=== PATIENT | female | born 1990 | race Two or more races ===

== ENCOUNTER 2021-03-12 15:17 | Emergency (ER) | payer BC, OTHER ==
[~2021-03-12] VITALS: Ht 162.6 cm; Wt 63.5 kg
[2021-03-12] MEDS ORDERED: ACET-1080 PO (17:12)
[2021-03-12 17:22] VITALS: BP 144/53
== END 2021-03-12 17:35 | disposition home or self-care (01) ==
LOC: ER 15:26
DX: S93.601A Unspecified sprain of right foot, initial encounter (principal); F17.210 Nicotine dependence, cigarettes, uncomplicated; Z87.442 Personal history of urinary calculi; X58.XXXA Exposure to other specified factors, initial encounter; Y93.01 Activity, walking, marching and hiking; Y92.89 Other specified places as the place of occurrence of the external cause; Y99.8 Other external cause status
CPT/HCPCS: 73630

== ENCOUNTER 2024-05-21 00:08 | Inpatient (IN) | payer BC ==
[~2024-05-21] VITALS: Ht 162.6 cm; Wt 57.9 kg
[~2024-05-21 00:08] MED LIST: ACET-1080 PO
--- NOTE | 2024-05-21 01:14 | ED.PDOC ---
General Chief Complaint: Flank Pain Comments pt has a history of kidney stones. the last episode was 2 years ago. pain started today, with left flank pain, radiating to left groin. also started her menses today, so does not know if she has hematuria. no dysuria. no trauma Time Seen by MD: 01:00 Primary Care Provider: UNKNOWN Reviewed notes: Nurses Notes Allergies: Coded Allergies: No Known Drug Allergy (Verified Allergy, Unknown, 03/12/21) Home Meds Active Scripts Acetaminophen (Tylenol 8 Hour Arthritis) 650 Mg Tab, 650 MG PO TID, #20 TAB Prov:ROGE MULLER 03/12/21 Information Source: Patient, [facility] Medical Record Mode of Arrival: Ambulatory Severity: Mild Inability to void: None Timing: Hours Duration: Since onset Onset: Spontaneous Symptoms: None History of: Kidney stone Modifying factors: None associated signs and symptoms: Flank Pain Past Medical History PAST MEDICAL HISTORY: Anxiety, Depression, Kidney Stones Surgical History: Denies all surgeries 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 History: Endometriosis Family History Family History: Reviewed,noncontributory to illness Social History Smoker: Cigarettes Alcohol: Denies ETOH Use Drugs: Denies Drug Use Lives In: Home Constitutional: denies: chills, diaphoresis, fatigue, fever, malaise, sweats, weakness, others EENTM: denies: blurred vision, double vision, ear bleeding, ear discharge, ear drainage, ear pain, ear ringing, eye pain, eye redness, hearing loss, mouth pain, mouth swelling, nasal discharge, nose bleeding, nose congestion, nose pain, photophobia, tearing, throat pain, throat swelling, voice changes, others Respiratory: denies: cough, hemoptysis, orthopnea, SOB at rest, shortness of breath, SOB with excertion, stridor, wheezing, others Cardiovascular: denies: chest pain, dizzy spells, diaphoresis, Dyspnea on exertion, edema, irregular heart beat, left arm pain, lightheadedness, palpitations, PND, syncope, others Gastrointestinal: denies: abdomen distended, abdominal pain, blood streaked bowels, constipated, diarrhea, dysphagia, difficulty swallowing, hematemesis, melena, nausea, poor appetite, poor fluid intake, rectal bleeding, rectal pain, vomiting, others Genitourinary: reports: flank pain; denies: abnormal vagina bleeding, burning, dyspareunia, dysuria, frequency, hematuria, incontinence, pain, , vagina discharge, urgency, others Neurological: denies: dizziness, fainting, headache, left sided numbness, left sided weakness, numbness, paresthesia, pre-existing deficit, right sided numbness, right sided weakness, seizure, speech problems, tingling, tremors, we akness, others Musculoskeletal: denies: back pain, gout, joint pain, joint swelling, muscle pain, muscle stiffness, neck pain, others Integumetry: denies: bruises, change in color, change in hair/nails, dryness, laceration, lesions, lumps, rash, wounds, others Allergic/Immunocompromised: denies: Difficulty Healing, Frequent Infections, Hives, Itching, others Hematologic/Lymphatic: denies: anemia, blood clots, easy bleeding, easy bruising, swollen glands, others Endocrine: denies: excessive hunger, excessive sweating, excessive thirst, excessive urination, flushing, intolerance to cold, intolerance to heat, unexplained weight gain, unexplained weight loss, others Psychiatric: denies: anxiety, bipolar disorder, depression, hopeless, panic disorder, schizophrenia, sleepless, suicidal, others Physical Exam General Appearance: No Apparent Distress, Normal HEENT: Normal ENT Inspection, Pharynx Normal, TMs Normal Neck: Full Range of Motion, Non-Tender, Normal, Normal Inspection Respiratory: Chest Non-Tender, Lungs Clear, No Accessory Muscle Use, No Respiratory Distress, Normal Breath Sounds Cardiovascular: No Edema, No JVD, No Murmur, No Gallop, Normal Peripheral Pulses, Regular Rate/Rhythm Breast Exam: Deferred Gastrointestinal: No Organomegaly, Non Tender, No Pulsatile Mass, Normal Bowel Sounds, Soft Genitalia: Deferred Pelvic: Deferred Rectal: Deferred Extremities: No calf tenderness, Normal capillary refill, Normal inspection, Normal range of motion, Non-tender, No pedal edema Musculoskeletal : Apperance: Normal Neurologic: Alert, 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 Was a procedure done?: No Differential Diagnosis Kidney stone (Female): , Bowel obstruction, DJD, Musculoskeletal pain, Pyelonephritis, Strain, Urinary obstruction, Urolithiasis Kidney stone (Male): Pyelonephritis, Strain, Urolithiasis, Renal infarction, Urinary tract infection Penile/Scrotal: Urolithiasis Urinary Problem (Male): N/A Urinary Problem (Female): Ectopic , Impaction, Intrauterine , Pyelonephritis, Urinary retention, Urolithiasis, UTI X-Ray, Labs, Meds, VS Vital Signs Date Time Temp Pulse Resp B/P (MAP) Pulse Ox O2 Delivery O2 Flow Rate FiO2 05/21/24 00:52 98.7 91 18 124/58 (80) 99 98.7 Lab Test 05/21/24 01:39 05/21/24 01:25 Range/Units Urine Color Pending Urine Clarity Pending Urine pH Pending Urine Specific [place] Pending Urine Protein Pending Urine Ketones Pending Urine Blood Pending Urine Nitrite Pending Urine Bilirubin Pending Urine Urobilinogen Pending Urine Leukocyte Esterase Pending Urine RBC Pending Urine Microscopic WBC Pending Urine Squamous Epithelial Cells Pending Urine Bacteria Pending Urine Glucose Pending White Blood Count 5.0 4.4-10.8 10^3/uL Red Blood Count 4.09 4.0-5.20 10^6/uL Hemoglobin 13.7 12.2-16.2 g/dL Hematocrit 39.9 36.0-46.0 % Mean Corpuscular Volume 97.6 80.0-100.0 fL Mean Corpuscular Hemoglobin 33.6 H 28.0-32.0 pg Mean Corpuscular Hemoglobin Concent 34.4 32.0-36.0 g/dL Red Cell Distribution Width 13.5 11.8-14.3 % Platelet Count 286 140-450 10^3/uL Mean Platelet Volume 8.4 6.9-10.8 fL Neutrophils (%) (Auto) 36.3 L 37.0-80.0 % Lymphocytes (%) (Auto) 55.0 H 10.0-50.0 % Monocytes (%) (Auto) 6.9 0.0-12.0 % Eosinophils (%) (Auto) 1.4 0.0-7.0 % Basophils (%) (Auto) 0.4 0.0-2.0 % Neutrophils # (Auto) 1.8 1.6-8.6 10 ^3/uL Lymphocytes # (Auto) 2.7 0.4-5.4 10 ^3/uL Monocytes # (Auto) 0.3 0-1.3 10 ^3/uL Eosinophils # (Auto) 0.1 0-0.8 10 ^3/uL Basophils # (Auto) 0 0-0.2 10 ^3/uL Nucleated Red Blood Cells 0.1 % Sodium Level 138 136-145 mmol/L Potassium Level 4.0 3.5-5.1 mmol/L Chloride Level 111 H 98-107 mmol/L Carbon Dioxide Level 23 20-31 mmol/L Anion Gap 4 L 5-15 Blood Urea Nitrogen 9 9-23 mg/dL Creatinine 0.89 0.550-1.02 mg/dL Glomerular Filtration Rate Calc 87 >90 mL/min BUN/Creatinine Ratio 10.1 10.0-20.0 Serum Glucose 83 74-106 mg/dL Calcium Level 9.2 8.7-10.4 mg/dL Beta HCG, Quantitative 0.7 L 1.5-4.2 mIU/mL Time of 1ST Reevaluation: 02:14 Reevaluation 1ST: Unchanged Patient Education/Counseling: Diagnosis, Treatment, Prognosis, Need For Follow Up Family Education/Counseling: No Family Present Additional Information pt continues to have pain. she does have stones in the midpole of the kidney, however they are causing signs of obstruction at the UVJ and symptoms. pt has had stones in the past that required lithotripsy. 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 i assessed the patient's condition, ordered the proper tests and treatments, reassessed for response and reviewed the results. i communicated with medical personnel and formulated a plan of care. total critical care time does not include any procedures Stability Stability form required: AAMIR Stahl MD May 21, 2024 01:14
[2024-05-21] MEDS ORDERED: KETOROLAC TROMETH 60MG/2ML VIAL IM ONE (01:15)
[2024-05-21 01:49] LABS: Basophils # (auto) 0 10 ^3/uL (0-0.2); Basophils % (auto) 0.4 % (0.0-2.0); Eosinophils # (auto) 0.1 10 ^3/uL (0-0.8); Eosinophils % (auto) 1.4 % (0.0-7.0); Hematocrit 39.9 % (36.0-46.0); Hemoglobin 13.7 g/dL (12.2-16.2); Lymphocytes # (auto) 2.7 10 ^3/uL (0.4-5.4); Mean Corpuscular Hemoglobin 33.6 pg (28.0-32.0); Mean Corpuscular Hgb Conc. 34.4 g/dL (32.0-36.0); Mean Corpuscular Volume 97.6 fL (80.0-100.0); Monocytes # (auto) 0.3 10 ^3/uL (0-1.3); Monocytes % (auto) 6.9 % (0.0-12.0); Neutrophils # (auto) 1.8 10 ^3/uL (1.6-8.6); Neutrophils % (auto) 36.3 % (37.0-80.0); Nucleated Red Blood Cells % 0.1 %; Platelet Count (auto) 286 10^3/uL (140-450); Red Blood Cells 4.09 10^6/uL (4.0-5.20); Red Cell Distribution Width 13.5 % (11.8-14.3)
--- NOTE | 2024-05-21 01:56 | [facility] ---
Exam: CT CT AB PEL WO CON-NO ORAL OR IV History: left flank pain Comparison Study: None Technique: Multidetector spiral CT of the abdomen was performed from lung bases to pubic symphysis. I maging was performed without IV contrast. Axial, coronal and sagittal multiplanar reformats were obta ined from the axial data set by the technologist. Radiation Dose : 1. Abdomen/Pelvis: CTDIvol 5.2 mGy, DLP 294.86 mGy*cm. Findings: Evaluation of solid organs is limited due to lack of intravenous contrast use. Lung Bases: No acute or significant lung base finding. Normal heart size. No pleural or pericardial effusion. Liver: The liver is normal in size. No focal lesions. Gallbladder and Biliary Tree: Unremarkable Spleen: Unremarkable Pancreas: The pancreas is grossly normal in appearance. Adrenal Glands: Unremarkable Kidneys: Multiple calculi within the left kidney measure up to approximately 1.0 cm within the midpo le, which is partially obstructing the ureteropelvic junction, resulting in mild hydronephrosis. Left superior pole renal cortical cyst measures 0.9 cm. The right kidney is normal in appearance. Bladder: Grossly unremarkable for degree of distention. Bowel: The stomach is grossly normal in appearance. Small bowel and colon are normal in caliber and d istribution. Retained stool noted throughout the colon. The appendix is not visualized; however, no s econdary findings of acute appendicitis identified. Ascites: Absent Lymphadenopathy: No mesenteric, retroperitoneal or periportal lymphadenopathy. Abdominal Wall and Mesentery: Unremarkable. Vasculature: The visualized abdominal aorta is normal in size and caliber. Evaluation of abdominal a nd pelvic vessels is limited due to lack of intravenous contrast. Pelvic Organs: 2.1 cm right adnexal cystic near water attenuation structure, likely ovarian cyst. Oth erwise unremarkable. Musculoskeletal: No aggressive focal bony lesions, acute fractures or dislocation. IMPRESSION: 1. Mild left hydronephrosis secondary to a partially obstructing UPJ calculus. 2. Retained colonic stool. 3. Probable right ovarian cyst. Radiation optimization: All CT scans at this facility use at least one of these dose optimization loyd hniques: automated exposure control mA and/or kV adjustment per patient size (includes targeted exam s where dose is matched to clinical indication) or iterative reconstruction.
[2024-05-21 01:57] LABS: Sodium 138 mmol/L (136-145)
[2024-05-21 01:58] LABS: Anion Gap 4 (5-15); Carbon Dioxide 23 mmol/L (20-31)
[2024-05-21 01:59] LABS: Calcium 9.2 mg/dL (8.7-10.4)
[2024-05-21 02:03] LABS: BUN/Creatinine Ratio 10.1 (10.0-20.0); Glucose 83 mg/dL (74-106)
[2024-05-21 02:04] LABS: Blood Urea Nitrogen 9 mg/dL (9-23); Chloride 111 mmol/L (98-107)
[2024-05-21] MEDS: SODIUM CHLORIDE 0.9% 1,000 ML IV ONE (02:58)
[2024-05-21] MEDS: fentaNYL CITRATE 100 MCG/2 ML VL IV ONE (03:02)
[2024-05-21 03:13] VITALS: PULSE 76; RESP 15; O2SAT 98
[2024-05-21 04:24] LABS: Urine Bacteria FEW /hpf (None Seen); Urine Blood 2+ /uL (Negative); Urine Clarity Clear (Clear); Urine Color Light-Yellow (Yellow); Urine Protein, UAD Negative (Negative); Urine Specific Gravity 1.006 (1.001-1.035); Urine Squamous Epithelial Cell None Seen /hpf (<5); Urine Urobilinogen Normal (Negative); Urine WBC 33 /HPF (0-5)
[2024-05-21] MEDS ORDERED: ONDANSETRON HCL 4 MG/2 ML VIAL IV PRN (05:30)
--- NOTE | 2024-05-21 05:57 | DVHHPRES ---
History of Present Illness Resident Creating Document: BLANQUITA MONACO RESIDENT History of Present Illness 34-year-old female patient with past medical history of anxiety and depression, previous history of nephrolithiasis and lithotripsy presented with complaints of left-sided lower abdominal pain which was radiating to groin, which was colicky in nature, 9/10 in intensity, not associated with any nausea, vomiting, similar in the quality as she had when previous kidney stone. She also mentioned that she had some blood from the vagina which could be possibly due to menses but men tioned that she had right-sided abdominal pain during menses. She denied any chest pain, shortness of breath, headache, dizziness, motor deficit, back pain. Past medical history Anxiety, depression, nephrolithiasis , endometriosis Past surgical history Lithotripsy Medication history Gabapentin, beta blockers, escitalopram, lamotrigine, azathioprine, hydroxyzine Social history, mentioned that smokes cigarettes, denied any other alcohol, marijuana or any other drugs Family history Nonsignificant Allergic history No known drug allergy Review of Systems Review of Systems As described in the HPI Allergies: Coded Allergies: No Known Drug Allergy (Verified Allergy, Unknown, 03/12/21) Medications Current Medications Medications Dose Ordered Sig/Rose Route Start Time Stop Time Status Last Admin Dose Admin Sodium Chloride 1,000 ml @ 125 mls/hr Q8H IV 05/21/24 05:30 Tamsulosin HCl 0.4 mg QPM PO 05/21/24 18:00 Ondansetron HCl 4 mg Q4HPRN PRN IV 05/21/24 05:30 Exam Vital Signs Vital Signs Date Time Temp Pulse Resp B/P (MAP) Pulse Ox O2 Delivery O2 Flow Rate FiO2 05/21/24 03:13 76 15 98 Room Air* 0 21 05/21/24 03:02 103/76 05/21/24 02:58 98.4 98.4 Exam Examination General Appearance: Alert, Oriented X3, Cooperative, No acute distress HEENT: EOMI Respiratory: Clear to auscultation, Normal air movement Cardiovascular: Regular rate, Normal S1, Normal S2 Abdominal: Left upper quadrant tenderness Normal bowel sounds Extremities: No cyanosis, No edema, Normal pulses, No tenderness/swelling Skin: No rashes, No breakdown Neuro: Normal gait, Normal speech, Strength at 5/5 X4 ext, Normal tone, Sensation intact, Cranial nerves 3-12 NL, Reflexes 2+ Psych/Mental Status: Mental status NL, Mood NL Labs/Xrays Labs Test 05/21/24 01:39 05/21/24 01:25 Range/Units Urine Color Light-yellow Yellow Urine Clarity Clear Clear Urine pH 6.0 5.0-9.0 Urine Specific [place] 1.006 1.001-1.035 Urine Protein Negative Negative Urine Ketones Negative Negative Urine Blood 2+ H Negative /uL Urine Nitrite Negative Negative Urine Bilirubin Negative Negative Urine Urobilinogen Normal Negative mg/dL Urine Leukocyte Esterase 3+ Negative /uL Urine RBC 6 0 - 4 /hpf Urine Microscopic WBC 33 H 0-5 /HPF Urine Squamous Epithelial Cells None seen <5 /hpf Urine Bacteria Few H None Seen /hpf Urine Glucose Normal Normal mg/dL White Blood Count 5.0 4.4-10.8 10^3/uL Red Blood Count 4.09 4.0-5.20 10^6/uL Hemoglobin 13.7 12.2-16.2 g/dL Hematocrit 39.9 36.0-46.0 % Mean Corpuscular Volume 97.6 80.0-100.0 fL Mean Corpuscular Hemoglobin 33.6 H 28.0-32.0 pg Mean Corpuscular Hemoglobin Concent 34.4 32.0-36.0 g/dL Red Cell Distribution Width 13.5 11.8-14.3 % Platelet Count 286 140-450 10^3/uL Mean Platelet Volume 8.4 6.9-10.8 fL Neutrophils (%) (Auto) 36.3 L 37.0-80.0 % Lymphocytes (%) (Auto) 55.0 H 10.0-50.0 % Monocytes (%) (Auto) 6.9 0.0-12.0 % Eosinophils (%) (Auto) 1.4 0.0-7.0 % Basophils (%) (Auto) 0.4 0.0-2.0 % Neutrophils # (Auto) 1.8 1.6-8.6 10 ^3/uL Lymphocytes # (Auto) 2.7 0.4-5.4 10 ^3/uL Monocytes # (Auto) 0.3 0-1.3 10 ^3/uL Eosinophils # (Auto) 0.1 0-0.8 10 ^3/uL Basophils # (Auto) 0 0-0.2 10 ^3/uL Nucleated Red Blood Cells 0.1 % Sodium Level 138 136-145 mmol/L Potassium Level 4.0 3.5-5.1 mmol/L Chloride Level 111 H 98-107 mmol/L Carbon Dioxide Level 23 20-31 mmol/L Anion Gap 4 L 5-15 Blood Urea Nitrogen 9 9-23 mg/dL Creatinine 0.89 0.550-1.02 mg/dL Glomerular Filtration Rate Calc 87 >90 mL/min BUN/Creatinine Ratio 10.1 10.0-20.0 Serum Glucose 83 74-106 mg/dL Calcium Level 9.2 8.7-10.4 mg/dL Beta HCG, Quantitative 0.7 L 1.5-4.2 mIU/mL Assessment/Plan Assessment/Plan A and P #Mild left hydronephrosis secondary to a partially obstructing UPJ calculus.- seen on CT #previous history of nephrolithiasis status post lithotripsy -IV fluids -uds -Urology consult -tamsulosin urologist consult #UTI -urine routine shows positive for UTI Urine culture IV ceftriaxone #Retained colonic stool -seen on CT #Probable right ovarian cyst. seen on CT # anxiety Resume home meds #Depression Resume home meds Case discussion with dr mixon Plan discussed with: Patient, Other My Orders Orders - BLANQUITA MONACO Procedure Category Date Status Time Admit ADMIT 05/21/24 Transmitted 04:38 Oxygen By Nasal RT 05/21/24 Transmitted Cannula 04:38 Stat Ekg For Chest [facility] 05/21/24 In Process Pain 04:38 Notify Of Changes [facility] 05/21/24 In Process From Base 04:38 Catalytic Converter Operator Helper For [facility] 05/21/24 In Process 24 Hours 04:38 Emergency Dysrhythmia [facility] 05/21/24 In Process Protocol 04:38 Rhythm Strips Once [facility] 05/21/24 In Process Every Shift 04:38 Sodium Chloride 0.9% PHA 05/21/24 In Process 05:30 Tamsulosin PHA 05/21/24 In Process Hydrochloride (Flomax) 18:00 Ondansetron Hcl PHA 05/21/24 In Process (Zofran) 05:30 Date of Service: May 21, 2024 Billing Provider: ERIKA MIXON MD Common Visit Codes: [id number] INP/OBS CARE (HIGH) BLANQUITA MONACO May 21, 2024 05:57 ERIKA MIXON MD May 21, 2024 18:31
[2024-05-21] MEDS: HYDROMORPHONE HCL 1 MG/ML INJ IV ONE (06:11)
[2024-05-21] MEDS: SODIUM CHLORIDE 0.9% 1,000 ML IV SCH (06:11)
[2024-05-21] MEDS: TAMSULOSIN HYDROCHLORIDE 0.4 MG CAP PO ONE (06:11)
[2024-05-21] MEDS: cefTRIAXone 1GM/50ML D5W 50 ML IV ONE (07:03)
[2024-05-21 07:30] VITALS: BP 96/67; PULSE 76; RESP 15; TEMP 97.9; O2SAT 96
[2024-05-21 07:30] LABS: Amphetamine Screen, Urine Neg (NEGATIVE)
[2024-05-21 07:34] LABS: Barbiturate Scree,Urine Neg (NEGATIVE); Benzodiazephine Screen, Urine Neg (NEGATIVE); Cannabinoid Screen, Urine Neg (NEGATIVE); Cocaine Screen, Urine Neg (NEGATIVE); Opiate Scree,Urine Neg (NEGATIVE); Phencyclidine Screen, Urine Neg (NEGATIVE)
[2024-05-21] MEDS ORDERED: lamoTRIgine 25 MG TAB PO ONE (08:45)
[2024-05-21] MEDS ORDERED: cefTRIAXone 1GM/50ML D5W 50 ML IV SCH (09:00)
--- NOTE | 2024-05-21 12:37 | DVHDSRES ---
Discharge Summary Date of Admission Resident Creating Document: BLANQUITA MONACO May 21, 2024 at 04:38 Date of Discharge: May 21, 2024 Labs/Diagnostic Data: Laboratory Results Test 05/21/24 01:39 05/21/24 01:25 Urine Color Light-yellow (Yellow) Urine Clarity Clear (Clear) Urine pH 6.0 (5.0-9.0) Urine Specific [place] 1.006 (1.001-1.035) Urine Protein Negative (Negative) Urine Ketones Negative (Negative) Urine Blood 2+ /uL (Negative) Urine Nitrite Negative (Negative) Urine Bilirubin Negative (Negative) Urine Urobilinogen Normal mg/dL (Negative) Urine Leukocyte Esterase 3+ /uL (Negative) Urine RBC 6 /hpf (0 - 4) Urine Microscopic WBC 33 /HPF (0-5) Urine Squamous Epithelial Cells None seen /hpf (<5) Urine Bacteria Few /hpf (None Seen) Urine Glucose Normal mg/dL (Normal) Urine Opiates Screen Neg (NEGATIVE) Urine Fentanyl Screen Neg (NEGATIVE) Urine Barbiturates Screen Neg (NEGATIVE) Urine Phencyclidine Screen Neg (NEGATIVE) Urine Amphetamines Screen Neg (NEGATIVE) Urine Benzodiazepines Screen Neg (NEGATIVE) Urine Cocaine Screen Neg (NEGATIVE) Urine Cannabinoids Screen Neg (NEGATIVE) White Blood Count 5.0 10^3/uL (4.4-10.8) Red Blood Count 4.09 10^6/uL (4.0-5.20) Hemoglobin 13.7 g/dL (12.2-16.2) Hematocrit 39.9 % (36.0-46.0) Mean Corpuscular Volume 97.6 fL (80.0-100.0) Mean Corpuscular Hemoglobin 33.6 pg (28.0-32.0) Mean Corpuscular Hemoglobin Concent 34.4 g/dL (32.0-36.0) Red Cell Distribution Width 13.5 % (11.8-14.3) Platelet Count 286 10^3/uL (140-450) Mean Platelet Volume 8.4 fL (6.9-10.8) Neutrophils (%) (Auto) 36.3 % (37.0-80.0) Lymphocytes (%) (Auto) 55.0 % (10.0-50.0) Monocytes (%) (Auto) 6.9 % (0.0-12.0) Eosinophils (%) (Auto) 1.4 % (0.0-7.0) Basophils (%) (Auto) 0.4 % (0.0-2.0) Neutrophils # (Auto) 1.8 10 ^3/uL (1.6-8.6) Lymphocytes # (Auto) 2.7 10 ^3/uL (0.4-5.4) Monocytes # (Auto) 0.3 10 ^3/uL (0-1.3) Eosinophils # (Auto) 0.1 10 ^3/uL (0-0.8) Basophils # (Auto) 0 10 ^3/uL (0-0.2) Nucleated Red Blood Cells 0.1 % Sodium Level 138 mmol/L (136-145) Potassium Level 4.0 mmol/L (3.5-5.1) Chloride Level 111 mmol/L (98-107) Carbon Dioxide Level 23 mmol/L (20-31) Anion Gap 4 (5-15) Blood Urea Nitrogen 9 mg/dL (9-23) Creatinine 0.89 mg/dL (0.550-1.02) Glomerular Filtration Rate Calc 87 mL/min (>90) BUN/Creatinine Ratio 10.1 (10.0-20.0) Serum Glucose 83 mg/dL (74-106) Calcium Level 9.2 mg/dL (8.7-10.4) Beta HCG, Quantitative 0.7 mIU/mL (1.5-4.2) Other Laboratory Tests 05/21/24 01:25 Brief Hx & Hospital Course: 34-year-old female patient with past medical history of anxiety and depression, previous history of nephrolithiasis and lithotripsy presented with complaints of left-sided lower abdominal pain which was radiating to groin, which was colicky in nature, 9/10 in intensity, not associated with any nausea, vomiting, similar in the quality as she had when previous kidney stone. She also mentioned that she had some blood from the vagina which could be possibly due to menses but mentioned that she had right-sided abdominal pain during menses. She denied any chest pain, shortness of breath, headache, dizziness, motor deficit, back pain. Hospital course: CT abdominopelvic was showing multiple renal stone on the left side with a large one 1 cm, leading to mild hydronephrosis. UA was showing UTI picture. Patient was admitted for the renal stone leading to hydronephrosis. Patient was given IV fluid, tamsulosin and pain killer, empiric antibiotic Rocephin was given. Urology was consulted, and urine culture was ordered. On 05/21/24, the patient wanted to leave the Emergency Department Against Medical Advice (AMA). Patient encouraged to stay for further treatment/stabilization. AAMIR LOCK MD notified of patient's wishes. Patient advised of the risks of leaving AMA. Patient verbalized understanding. Patient encouraged to return to the ER if symptoms do not improve or worsen. Operations or Procedures [place] [id number] Ph: [phone] DIAGNOSTIC IMAGING Diagnostic Imaging Report : [id number] Signed PATIENT: MISTI TEIXEIRA ACCT: [id number] UNIT: [id number] : 1990 LOC: ER ROOM / BED: / AGE / SEX: 34 / F ADM STATUS: REG ER SERVICE 2 ORDERING PHYSICIAN: AAMIR LOCK MD PROCEDURE(s): ABPL - CT AB PEL WO CON-NO ORAL OR IV REASON: left flank pain ORDER NUMBER(s): [id number], ACCESSION NUMBER(s): [id number] Exam: CT CT AB PEL WO CON-NO ORAL OR IV History: left flank pain Comparison Study: None Technique: Multidetector spiral CT of the abdomen was performed from lung bases to pubic symphysis. Imaging was performed without IV contrast. Axial, coronal and sagittal multiplanar reformats were obtained from the axial data set by the technologist. Radiation Dose : 1. Abdomen/Pelvis: CTDIvol 5.2 mGy, DLP 294.86 mGy*cm. Findings: Evaluation of solid organs is limited due to lack of intravenous contrast use. Lung Bases: No acute or significant lung base finding. Normal heart size. No pleural or pericardial effusion. Liver: The liver is normal in size. No focal lesions. Gallbladder and Biliary Tree: Unremarkable Spleen: Unremarkable Pancreas: The pancreas is grossly normal in appearance. Adrenal Glands: Unremarkable Kidneys: Multiple calculi within the left kidney measure up to approximately 1.0 cm within the midpole, which is partially obstructing the ureteropelvic junction, resulting in mild hydronephrosis. Left superior pole renal cortical cyst measures 0.9 cm. The right kidney is normal in appearance. Bladder: Grossly unremarkable for degree of distention. Bowel: The stomach is grossly normal in appearance. Small bowel and colon are normal in caliber and distribution. Retained stool noted throughout the colon. The appendix is not visualized; however, no secondary findings of acute appendicitis identified. Ascites: Absent Lymphadenopathy: No mesenteric, retroperitoneal or periportal lymphadenopathy. Abdominal Wall and Mesentery: Unremarkable. Vasculature: The visualized abdominal aorta is normal in size and caliber. Evaluation of abdominal and pelvic vessels is limited due to lack of intravenous contrast. Pelvic Organs: 2.1 cm right adnexal cystic near water attenuation structure, likely ovarian cyst. Otherwise unremarkable. Musculoskeletal: No aggressive focal bony lesions, acute fractures or dislocation. IMPRESSION: 1. Mild left hydronephrosis secondary to a partially obstructing UPJ calculus. 2. Retained colonic stool. 3. Probable right ovarian cyst. Radiation optimization: All CT scans at this facility use at least one of these dose optimization techniques: automated exposure control mA and/or kV adjustment per patient size (includes targeted exams where dose is matched to clinical indication) or iterative reconstruction. ATED BY: BENIGNO GLORIA MD DICTATED DATE/TIME: 05/21/24153 SIGNED BY: BENIGNO GLORIA MD SIGNED DATE/TIME: 05/21/24153 CC: Condition at Discharge: Undetermined Final Diagnosis/Problems List Left-sided renal stone leading to mild hydronephrosis Left side Mild hydronephrosis, due to renal stone Complicated UTI Constipation History of the patient's lunch anxiety Possible right ovarian cyst Discharge Disposition: AMA Discharge Statement: "Patient was advised to return to the ER or call 911 if any headaches, dizziness, shortness of breath, chest pain, abdominal pain, bleeding, fevers, or worsening of medical condition. Patient was counseled about treatment plan, medications, possible side effects, patientverbalized understanding. All questions were answered to the best of my ability. This discharge took greater then 30 minutes in planning, reviewing documentation, counseling the patient, and discussing with other team members." ASSESSMENT ASSESSMENT Assessment NEVIN MOREIRA MERGED WITH [facility] May 21, 2024 12:37
[2024-05-21] MEDS ORDERED: GABAPENTIN 300 MG CAP PO SCH (14:00)
[2024-05-21] MEDS ORDERED: TAMSULOSIN HYDROCHLORIDE 0.4 MG CAP PO SCH (18:00)
[2024-05-21] MEDS ORDERED: ALPRAZolam 0.5 MG TAB PO SCH (22:00)
[2024-05-22] MEDS ORDERED: lamoTRIgine 25 MG TAB PO SCH (10:00)
== END 2024-05-21 08:15 | disposition left against medical advice (07) | DRG 690 ==
LOC: ER 00:08 → OVERFLOW 04:38
PROVIDERS: ADMIT Student in an Organized Health Care Education/Training Program; ATTEND Internal Medicine
DX: N13.6 Pyonephrosis (principal); F32.A Depression, unspecified; F41.9 Anxiety disorder, unspecified; F17.210 Nicotine dependence, cigarettes, uncomplicated; K59.00 Constipation, unspecified; N83.291 Other ovarian cyst, right side; Z53.29 Procedure and treatment not carried out because of patient's decision for other reasons; Z87.442 Personal history of urinary calculi
CPT/HCPCS: 36415; 74176; 80048; 80307; 81001; 84702; 85025; 87086; 96361; 96365; 96375; 99291; G0378; J2405

== ENCOUNTER 2024-11-10 14:55 | Inpatient (IN) | payer BC ==
[~2024-11-10] VITALS: Ht 162.6 cm; Wt 55.0 kg
[2024-11-10 15:56] LABS: Hematocrit 39.8 % (36.0-46.0); Hemoglobin 13.6 g/dL (12.2-16.2); Mean Corpuscular Hemoglobin 33.1 pg (28.0-32.0); Mean Corpuscular Volume 96.4 fL (80.0-100.0); Nucleated Red Blood Cells % 0.0 %
[2024-11-10 16:03] LABS: Urine Protein, UAD 2+ (Negative); Urine WBC Clumps PRESENT /hpf (None Seen)
[2024-11-10 16:10] LABS: Alanine Aminotransferase 12 U/L (7-40); Albumin 3.8 g/dL (3.2-4.8); Alkaline Phosphatase 66 U/L (46-116); Anion Gap 7 (5-15); BUN/Creatinine Ratio 10.5 (10.0-20.0); Bilirubin, Total 0.4 mg/dL (0.2-1.0); Blood Urea Nitrogen 8 mg/dL (9-23); Calcium 8.7 mg/dL (8.7-10.4); Carbon Dioxide 23 mmol/L (20-31); Chloride 113 mmol/L (98-107); Glucose 67 mg/dL (74-106); Potassium 3.6 mmol/L (3.5-5.1); Sodium 143 mmol/L (136-145); Total Protein 6.7 g/dL (5.7-8.2)
--- NOTE | 2024-11-10 16:53 | ED.PDOC ---
General HPI Comments HPI: Malren 34 y.o female presents to the ED for a chief complaint left flank/ LUQ pain associated with nausea x 1 day. Patient reports being seen at [facility] for c/o, had a CT scan done which revealed a 1.2cm kidney stone and was admitted to see urologist for a lithotripsy. Patient signs out AMA given she was far from home and wanted to be seen locally. She denies any vomiting, fever, chills, back pain, abdominal pain. Past Medical History: Kidney stones, depression, endometriosis, and anxiety Past Surgical History: lithotripsy and a couple D&C's Social History: Denies ETOH, smoking, and drug use. Allergies: Denies Marlen: HPI: Poor Historian. REVIEW OF SYSTEMS: CONSTITUTIONAL: Denies acute: fever, diaphoresis, chills, generalized weakness. HEAD: Denies acute: headache, photophobia Eyes: Denies acute: Double vision, vision loss, eye pain, eye discharge. EARS: Denies acute: tinnitus, hearing loss, ear discharge, ear pain, THROAT: Denies acute: sore throat, swelling, difficulty swallowing , pain with swallowing, change in voice. NECK: Denies acute: neck pain, neck swelling, stiff neck. HEART: Denies acute : chest pain, palpitations, LUNGS: Denies acute: SOB, wheezing, cough, hemoptysis ABDOMEN: Denies acute: Vomiting, diarrhea, melena , hematemesis, hematochezia SKIN: Denies acute: rash, redness, lesions, itchiness. EXTREMITIES: Denies acute: calf pain, numbness, tingling, weakness, denies pain in extremity. Denies acute: Low back pain. Neuro: Denies acute: focal neurological deficit, motor or sensory focal neurological deficit, tremors, seizure like activity, confusion, dizziness, change in mental status, loss of bowel or bladder function, cauda equina like symptoms. : Denies acute: dysuria, hematuria, flank pain, increase in urinary frequency. PSYCH: Denies acute: hallucination, suicidal ideation, homicidal ideation. FEMALE: Denies acute: abnormal vaginal bleeding, foul odor, unusual discharge. PHYSICAL EXAM: General: -----moderate---acute distress, awake and alert. Head: normocephalic, atraumatic. Neck: supple, trachea is midline, no swelling. Throat: Normal phonation. Eyes:, no erythema, no purulent discharge, no proptosis, no icterus. Heart: regular rate, regular rhythm, no significant murmur appreciated. Lungs: no apparent respiratory distress, Able to speak in full sentences. No wheezing, no rhonchi, no crackles. No stridors Clear to auscultation bilaterally. Abdomen: Left upper quadrant tender to palpation, non distended, soft, no guarding, no rebound, + bowel sounds. Neuro: Awake, Alert, oriented to name, self, situation, follows commands GCS=15. Speech is normal. Skin: no petechia, no purpura, no cyanosis, non-pale, not jaundice. Lower extremities: --no - Pitting edema no deformity, no focal swelling, no calf TTP. Makes eye contact. moves all four extremities. Face: no apparent facial droop. No CVA tenderness to percussion bilaterally. Ambulating in the ED independently. ED COURSE: DISCLAIMER: This medical document was created using an electronic medical record system with voice recognition software and computerized dictation system. Although this do cument has been carefully reviewed, there might still be some phonetic and typographical errors. Occasional wrong-word or "sound-alike" substitutions may have occurred due to the inherent limitations of voice recognition software. These areas are purely typographical due to imperfections of the software programs and do not reflect any compromise in the patient's medical care. Please read the chart carefully and recognize, using context, where these substitutions have occurred. Chief Complaint: Urinary Time Seen by MD: 16:56 Primary Care Provider: UNKNOWN Reviewed notes: Allergies Allergies: Coded Allergies: No Known Drug Allergy (Verified Allergy, Unknown, 03/12/21) Home Meds Active Scripts Meloxicam (Meloxicam) 7.5 Mg Tab, 7.5 MG PO BID for 10 Days, #20 TAB Prov:ROBERT KAYE DO 11/14/24 Tamsulosin Hcl (Flomax) 0.4 Mg Cap, 0.4 MG PO QPM for 30 Days, #30 CAP 6 Refills Prov:KAYEROBERT Smalls DO 11/14/24 Sertraline Hcl (Zoloft) 50 Mg Tab, 100 MG PO DAILY for 30 Days, #60 TAB 3 Refills Prov:ROBERT KAYE DO 11/14/24 Gabapentin (Gabapentin) 400 Mg Cap, 800 MG PO TID for 30 Days, #90 CAP 3 Refills Prov:ROBERT KAYE DO 11/14/24 Acetaminophen (Tylenol 8 Hour Arthritis) 650 Mg Tab, 650 MG PO TID, #20 TAB Prov:ROGE MULLER 03/12/21 Reported Medications Gabapentin (Gabapentin) 800 Mg Tab, 1 TAB PO TID 11/10/24 Sertraline Hcl (Sertraline Hcl) 100 Mg Tab, 1 TAB PO DAILY 11/10/24 Information Source: Patient Mode of Arrival: Ambulatory Past Medical History PAST MEDICAL HISTORY: Anxiety, Depression, Kidney Stones Surgical History: Denies all surgeries [employer] History: Endometriosis Family History Family History: Reviewed,noncontributory to illness Social History Smoker: Cigarettes Alcohol: Denies ETOH Use Drugs: Denies Drug Use Lives In: Home Was a procedure done? Was a procedure done?: No Differential Diagnosis Kidney stone (Female): Hepatitis, Musculoskeletal pain, Pancreatitis, Pyelonephritis, Strain, Other (Flank Pain;DDX include Nephrolethiasis, o bstructive uropathy, kidney cancer, renal infarct, intraabdominal neoplasm, lower lobe pneumonia, retroperitoneal hemorrhage, pancreatitis, aneurysm, dissection, musculoskeletal, rib contusion/trauma, hematoma, PYLONEPHRITIS, muscle strain, spinal disease. IN A FEMALE) Urinary Problem (Female): UTI X-Ray, Labs, Meds, VS Vital Signs Date Time Temp Pulse Resp B/P (MAP) Pulse Ox O2 Delivery O2 Flow Rate FiO2 11/10/24 15:01 98.7 82 16 112/75 97 98.7 Lab Test 11/10/24 16:22 11/10/24 15:41 11/10/24 15:40 Range/Units POC Glucose 74 70-106 mg/dl Urine Color Light-orange Yellow Urine Clarity Ex.turbid Clear Urine pH 6.0 5.0-9.0 Urine Specific [place] 1.027 1.001-1.035 Urine Protein 2+ H Negative Urine Ketones Negative Negative Urine Blood 1+ H Negative /uL Urine Nitrite 2+ H Negative Urine Bilirubin Negative Negative Urine Urobilinogen Normal Negative mg/dL Urine Leukocyte Esterase 3+ Negative /uL Urine RBC 117 0 - 4 /hpf Urine WBC Clumps Present None Seen /hpf Urine Microscopic WBC 1416 H 0-5 /HPF Urine Squamous Epithelial Cells Mod <5 /hpf Urine Bacteria Few H None Seen /hpf Urine Mucus Few None Seen Urine Glucose Normal Normal mg/dL White Blood Count 7.1 4.4-10.8 10^3/uL Red Blood Count 4.13 4.0-5.20 10^6/uL Hemoglobin 13.6 12.2-16.2 g/dL Hematocrit 39.8 36.0-46.0 % Mean Corpuscular Volume 96.4 80.0-100.0 fL Mean Corpuscular Hemoglobin 33.1 H 28.0-32.0 pg Mean Corpuscular Hemoglobin Concent 34.3 32.0-36.0 g/dL Red Cell Distribution Width 13.1 11.8-14.3 % Platelet Count 414 140-450 10^3/uL Mean Platelet Volume 8.2 6.9-10.8 fL Neutrophils (%) (Auto) 53.8 37.0-80.0 % Lymphocytes (%) (Auto) 38.0 10.0-50.0 % Monocytes (%) (Auto) 5.6 0.0-12.0 % Eosinophils (%) (Auto) 2.2 0.0-7.0 % Basophils (%) (Auto) 0.4 0.0-2.0 % Neutrophils # (Auto) 3.8 1.6-8.6 10 ^3/uL Lymphocytes # (Auto) 2.7 0.4-5.4 10 ^3/uL Monocytes # (Auto) 0.4 0-1.3 10 ^3/uL Eosinophils # (Auto) 0.2 0-0.8 10 ^3/uL Basophils # (Auto) 0 0-0.2 10 ^3/uL Nucleated Red Blood Cells 0.0 % Sodium Level 143 136-145 mmol/L Potassium Level 3.6 3.5-5.1 mmol/L Chloride Level 113 H 98-107 mmol/L Carbon Dioxide Level 23 20-31 mmol/L Anion Gap 7 5-15 Blood Urea Nitrogen 8 L 9-23 mg/dL Creatinine 0.76 0.550-1.02 mg/dL Glomerular Filtration Rate Calc 105 >90 mL/min BUN/Creatinine Ratio 10.5 10.0-20.0 Serum Glucose 67 L 74-106 mg/dL Lactic Acid Level 1.3 0.4-2.0 mmol/L Calcium Level 8.7 8.7-10.4 mg/dL Total Bilirubin 0.4 0.2-1.0 mg/dL Aspartate Amino Transferase (AST) 13 13-40 U/L Alanine Aminotransferase (ALT) 12 7-40 U/L Alkaline Phosphatase 66 46-116 U/L Total Protein 6.7 5.7-8.2 g/dL Albumin 3.8 3.2-4.8 g/dL [facility] [id number] [place] [address] Ph: [phone] DIAGNOSTIC IMAGING Diagnostic Imaging Report : [id number] Signed PATIENT: MISTI TEIXEIRA ACCT: [id number] UNIT: [id number] : 1990 LOC: ER ROOM / BED: / AGE / SEX: 34 / F ADM STATUS: REG ER SERVICE 1704 ORDERING PHYSICIAN: BELEM LAW DO PROCEDURE(s): ABPL - CT AB PEL WO CON-NO ORAL OR IV REASON: kidney stone L ORDER NUMBER(s): [id number], ACCESSION NUMBER(s): [id number] Exam: CT CT AB PEL WO CON-NO ORAL OR IV History: kidney stone L Comparison Study: CT CT AB PEL WO CON-NO ORAL OR IV on DOS: 05/21/24 TECHNIQUE: Multidetector CT of the abdomen and pelvis without IV contrast. Axial, coronal and sagittal multiplanar reformats were obtained from the axial data set by the technologist. Radiation Dose Information: CT Dose: CTDI volume is 5.26 mGy. Dose-length product is 3.92 mGy*cm FINDINGS: Bibasilar atelectasis. Partially visualized heart is unremarkable. Mild hepatomegaly. Otherwise, liver, spleen, pancreas and right adrenal glands unremarkable. 1.1 cm left adrenal nodule measuring up to 17 Hounsfield units. Right kidney, ureter and urinary bladder unremarkable. 3 mm left renal upper pole calculus with 5 mm and 4 mm left renal lower pole calculus and additional 0.8 x 1.2 cm calculus within the left renal pelvis. Minimal left Hydronephrosis. No obstructing ureteral calculus is noted. Uterus is unremarkable. 3 cm right ovarian cyst. Small amount of free fluid within the cul-de-sac which is most likely physiologic. Mild wall thickening of the mid stomach. The small bowel loops unremarkable. Appendix is unremarkable. Mild wall thickening of the ascending colon. Mild wall thickening of the sigmoid and rectum. Small to moderate amount of fecal material within the colon. No evidence of intraperitoneal free air or free fluid. Mild mesenteric edema. No evidence of aortic aneurysm. No significant lymphadenopathy. Minimal body wall edema. No evidence of acute osseous abnormalities. IMPRESSION: Minimal left renal hydro nephrosis with left renal calculi largest within the left renal pelvis measuring up to 1.3 cm. Mild fat stranding adjacent to the left renal pelvis which may be from the calculus with infectious process not excluded. 1.1 cm left adrenal nodule measuring up to 17 Hounsfield [address]/ MRI should be considered for further evaluation. Wall thickening of the ascending colon, sigmoid and rectum which appears to be from inadequate distention. Mild wall thickening of the mid stomach which may be from inadequate distention gastritis not excluded. ATED BY: ALANNAH SAM DO DICTATED DATE/TIME: 11/10/241815 SIGNED BY: ALANNAH SAM DO SIGNED DATE/TIME: 11/10/241815 CC: Time of 1ST Reevaluation: 17:09 Reevaluation 1ST: Unchanged Patient Education/Counseling: Diagnosis, Treatment Family Education/Counseling: No Family Present Comments MDM: patient presented with the above HPI.---flank pain---workup was initiated. patient was found with the above mentioned diagnosis. the following medications were ordered: please refer to order lists of meds and tests obtained by myself Dr. Law. Patient ED course and VS have been stabilized. Patient has been reassessed in the ED and remained in a stable condition. Pertinent incidental findings were discussed with the patient and/or family. Patient/family voices understanding and is agreeable with plan. Patient has been observed in the ED adequate length of time to insure improvement/stability. Escalation of care considered: Consideration of escalation to observation or admission Fluids and antibiotics initiated. CT scan of the abdomen and pelvis obtained. Patient was ADMITTED to the medicine team for further evaluation and treatment of their presentation. All the reports of any imaging studies that were ordered by myself were reviewed by myself. Departure 1 Departure Time of Disposition: 19:22 Impression: Primary Impression: Hydronephrosis Additional Impressions: Renal colic on left side UTI (urinary tract infection) Disposition: ADMITTED INPATIENT Admit to: Tele Condition: Guarded e-Prescriptions Meloxicam (Meloxicam) 7.5 Mg Tab 7.5 MG PO BID for 10 Days, #20 TAB Prov: ROBERT KAYE DO 11/14/24 Tamsulosin Hcl (Flomax) 0.4 Mg Cap 0.4 MG PO QPM for 30 Days, #30 CAP 6 Refills Prov: ROBERT KAYE DO 11/14/24 Sertraline Hcl (Zoloft) 50 Mg Tab 100 MG PO DAILY for 30 Days, #60 TAB 3 Refills Prov: ROBERT KAYE DO 11/14/24 Gabapentin (Gabapentin) 400 Mg Cap 800 MG PO TID for 30 Days, #90 CAP 3 Refills Prov: ROBERT KAYE DO 11/14/24 Discharged With: Self Critical Care Note Critical Care Time?: No I personally scribed for BELEM LAW DO ([email or web address]) on 11/10/24 at 16:53. Electronically submitted by Cuca Navarrete ([facility]). I personally scribed for BELEM LAW DO ([email or web address]) on 11/10/24 at 17:14. Electronically submitted by Cuca Navarrete ([facility]). BELEM LAW DO Nov 10, 2024 16:53
--- NOTE | 2024-11-10 18:18 | DVH ---
Exam: CT CT AB PEL WO CON-NO ORAL OR IV History: kidney stone L Comparison Study: CT CT AB PEL WO CON-NO ORAL OR IV on DOS: 05/21/24 TECHNIQUE: Multidetector CT of the abdomen and pelvis without IV contrast. Axial, coronal and sagitta l multiplanar reformats were obtained from the axial data set by the technologist. Radiation Dose Information: CT Dose: CTDI volume is 5.26 mGy. Dose-length product is 3.92 mGy*cm FINDINGS: Bibasilar atelectasis. Partially visualized heart is unremarkable. Mild hepatomegaly. Otherwise, liver, spleen, pancreas and right adrenal glands unremarkable. 1.1 cm left adrenal nodule measuring up to 17 Hounsfield units. Right kidney, ureter and urinary bladder unremarkable. 3 mm left renal upper pole calculus with 5 mm and 4 mm left renal lower pole calculus and additional 0.8 x 1.2 cm calculus within the left renal pe lvis. Minimal left Hydronephrosis. No obstructing ureteral calculus is noted. Uterus is unremarkable. 3 cm right ovarian cyst. Small amount of free fluid within the cul-de-sac which is most likely physi ologic. Mild wall thickening of the mid stomach. The small bowel loops unremarkable. Appendix is unremarkable . Mild wall thickening of the ascending colon. Mild wall thickening of the sigmoid and rectum. Small to moderate amount of fecal material within the colon. No evidence of intraperitoneal free air or free fluid. Mild mesenteric edema. No evidence of aortic aneurysm. No significant lymphadenopathy. Minimal body wall edema. No evidence of acute osseous abnormalities. IMPRESSION: Minimal left renal hydro nephrosis with left renal calculi largest within the left renal pelvis measu ring up to 1.3 cm. Mild fat stranding adjacent to the left renal pelvis which may be from the calculu s with infectious process not excluded. 1.1 cm left adrenal nodule measuring up to 17 Hounsfield [address]/ MRI should be c onsidered for further evaluation. Wall thickening of the ascending colon, sigmoid and rectum which appears to be from inadequate disten tion. Mild wall thickening of the mid stomach which may be from inadequate distention gastritis not exclude d.
[2024-11-10] MEDS: SODIUM CHLORIDE 0.9% 1,000 ML IV ONE (19:39)
[2024-11-10] MEDS ORDERED: GABA800T97 PO (21:13)
[2024-11-10] MEDS ORDERED: SERT-160 PO (21:13)
--- NOTE | 2024-11-10 21:14 | DVHHP2 ---
History of Present Illness History of Present Illness Patient is 34-year-old female with past medical history of nephrolithiasis, endometriosis, anxiety, depression who came to the hospital with a chief complaint of acute onset of left-sided flank pain since last two days. Flank pain is 9/10, throbbing in nature, worsened over the time, associated with nausea and two episodes of vomiting. As per patient he went to one of the hospital in [place] where she was told that she has 1.2 cm left-sided renal stone, however she did not seek any other treatment and came to the [facility]. Mainly located in left flank pain, not associated with increased urinary frequency however patient had burning micturition at the end. Color of the urine is pale yellow, which did not change from regular. Last menstrual period early October. Patient denying any other symptoms at this point. Past medical history: Nephrolithiasis, endometriosis, anxiety, depression. Past surgical history: Lithotripsy for nephrolithiasis in 2019. Personal history: Smokes half a pack cigarettes for last 10 years. Denying any other recreational drug use. Allergy: None Home medication: Zoloft 100 mg p.o. daily, gabapentin 800 mg p.o. t.i.d., Xanax 1 mg b.i.d. for anxiety, propranolol as needed for anxiety. Review of Systems Constitutional: No: Fever, Chills, Sweats, Weakness, Malaise, Other Eyes: No: Pain, Vision change, Conjunctivae inflammation, Eyelid inflammation, Other, Redness ENT: No: Ear pain, Ear discharge, Nose pain, Nose discharge, Nose congestion, Mouth pain, Mouth swelling, Throat pain, Throat swelling, Other Respiratory: No: Cough, Dry, Shortness of breath, SOB with excertion, Wheezing, Hemoptysis, Pleuritic Pain, Sputum, Wheezing, Other Cardiovascular: No: Chest Pain, Palpitations, Orthopnea, Paroxysmal Noc. Dyspnea, Edema, Lt Headedness, Other Gastrointestinal: Nausea, Vomiting Genitourinary: No Dysuria, No Frequency, No Incontinence, No Hematuria, No Retention, No Other Musculoskeletal: No: other, neck pain, shoulder pain, arm pain, back pain, hand pain, leg pain, foot pain Skin: No: Rash, Lesions, Jaundice, Bruising, Other Neurological: No: Weakness, Numbness, Incoordination, Change in speech, Confusion, Seizures, Other Allergies: Coded Allergies: No Known Drug Allergy (Verified Allergy, Unknown, 03/12/21) Medications Current Medications Medications Dose Ordered Sig/Roes Route Start Time Stop Time Status Last Admin Dose Admin Sodium Chloride 1,000 ml @ 75 mls/hr [id number] IV 11/10/24 21:15 UNV Ceftriaxone Sodium 50 ml @ 100 mls/hr DAILY@09 IV 11/11/24 09:00 UNV Ondansetron HCl 4 mg Q4HPRN PRN IV 11/10/24 21:15 UNV Morphine Sulfate 1 mg Q6HP PRN IV 11/10/24 21:15 UNV Morphine Sulfate 1 mg Q6HP PRN IV 11/10/24 21:15 UNV Tamsulosin HCl 0.4 mg QPM PO 11/11/24 18:00 UNV Sertraline HCl 100 mg DAILY PO 11/11/24 10:00 UNV Gabapentin 800 mg TID PO 11/10/24 22:00 UNV Propranolol HCl 20 mg BID PRN PO 11/10/24 21:15 UNV Exam Vital Signs Vital Signs Date Time Temp Pulse Resp B/P (MAP) Pulse Ox O2 Delivery O2 Flow Rate FiO2 11/10/24 19:48 98.4 77 18 111/37 (61) 98 98.4 Exam General Appearance: Cooperative. Well developed. Well nourished. NAD Head Exam: Normal inspection Neck Exam: Normal inspection. Non-tender. Normal alignment Pulmonary/Respiratory: Chest non-tender. Clear bilateral breath sounds Cardiovascular/Chest: Regular rate and rhythm. No murmurs. No JVD. Peripheral Pulses: 2+ Radial (R). 2+ Radial (L). 2+ Pedal (R). 2+ Pedal (L) Abdominal Exam: Normal bowel sounds. Soft. Tenderness over palpation of left costophrenic angle. No hepatospenomegaly. No masses Ankle Exam: Negative ankle edema Lower extremities: Negative lower extremity edema Neuro/Mental Status: A&O x4. Coherent Thoughts/Psych: Normal thought pattern. Appropriate mood and affect. Good judgement and insight Appearance: In no acute distress Skin Exam: Normal inspection. Normal color. Warm. Dry Labs/Xrays Labs Test 11/10/24 16:22 11/10/24 15:41 11/10/24 15:40 Range/Units POC Glucose 74 70-106 mg/dl Urine Color Light-orange Yellow Urine Clarity Ex.turbid Clear Urine pH 6.0 5.0-9.0 Urine Specific [place] 1.027 1.001-1.035 Urine Protein 2+ H Negative Urine Ketones Negative Negative Urine Blood 1+ H Negative /uL Urine Nitrite 2+ H Negative Urine Bilirubin Negative Negative Urine Urobilinogen Normal Negative mg/dL Urine Leukocyte Esterase 3+ Negative /uL Urine RBC 117 0 - 4 /hpf Urine WBC Clumps Present None Seen /hpf Urine Microscopic WBC 1416 H 0-5 /HPF Urine Squamous Epithelial Cells Mod <5 /hpf Urine Bacteria Few H None Seen /hpf Urine Mucus Few None Seen Urine Glucose Normal Normal mg/dL White Blood Count 7.1 4.4-10.8 10^3/uL Red Blood Count 4.13 4.0-5.20 10^6/uL Hemoglobin 13.6 12.2-16.2 g/dL Hematocrit 39.8 36.0-46.0 % Mean Corpuscular Volume 96.4 80.0-100.0 fL Mean Corpuscular Hemoglobin 33.1 H 28.0-32.0 pg Mean Corpuscular Hemoglobin Concent 34.3 32.0-36.0 g/dL Red Cell Distribution Width 13.1 11.8-14.3 % Platelet Count 414 140-450 10^3/uL Mean Platelet Volume 8.2 6.9-10.8 fL Neutrophils (%) (Auto) 53.8 37.0-80.0 % Lymphocytes (%) (Auto) 38.0 10.0-50.0 % Monocytes (%) (Auto) 5.6 0.0-12.0 % Eosinophils (%) (Auto) 2.2 0.0-7.0 % Basophils (%) (Auto) 0.4 0.0-2.0 % Neutrophils # (Auto) 3.8 1.6-8.6 10 ^3/uL Lymphocytes # (Auto) 2.7 0.4-5.4 10 ^3/uL Monocytes # (Auto) 0.4 0-1.3 10 ^3/uL Eosinophils # (Auto) 0.2 0-0.8 10 ^3/uL Basophils # (Auto) 0 0-0.2 10 ^3/uL Nucleated Red Blood Cells 0.0 % Sodium Level 143 136-145 mmol/L Potassium Level 3.6 3.5-5.1 mmol/L Chloride Level 113 H 98-107 mmol/L Carbon Dioxide Level 23 20-31 mmol/L Anion Gap 7 5-15 Blood Urea Nitrogen 8 L 9-23 mg/dL Creatinine 0.76 0.550-1.02 mg/dL Glomerular Filtration Rate Calc 105 >90 mL/min BUN/Creatinine Ratio 10.5 10.0-20.0 Serum Glucose 67 L 74-106 mg/dL Lactic Acid Level 1.3 0.4-2.0 mmol/L Calcium Level 8.7 8.7-10.4 mg/dL Total Bilirubin 0.4 0.2-1.0 mg/dL Aspartate Amino Transferase (AST) 13 13-40 U/L Alanine Aminotransferase (ALT) 12 7-40 U/L Alkaline Phosphatase 66 46-116 U/L Total Protein 6.7 5.7-8.2 g/dL Albumin 3.8 3.2-4.8 g/dL SEPSIS Sepsis Screen Date sepsis recognized/suspect: Nov 10, 2024 Time Sepsis recognized/suspect: 1503 Recent Procedure: No On Antibiotic Therapy: No Respiratory Rate >20: No Heart Rate >90: No Temp<36 C (96.8 F) or >38.3 C: No SBP <90 or MAP <65 mmHG: No New Acute Mental Status Change: No Is the patient on CPAP, BIPAP,: No Physician Orders Ct Ab Pel Wo Con-No Oral Or Iv (11/10/24 17:04) Admit (11/10/24 21:07) * Urology Consult (11/10/24 21:09) Sodium Chloride 0.9% (11/10/24 21:15) Ceftriaxone 1gm/50ml (Rocephin) (11/11/24 09:00) Urine Bacterial Culture (11/10/24 21:09) Ondansetron Hcl (Zofran) (11/10/24 21:15) Morphine Sulfate Injection (11/10/24 21:15) Morphine Sulfate Injection (11/10/24 21:15) Tamsulosin Hydrochloride (Flomax) (11/10/24 21:15) Tamsulosin Hydrochloride (Flomax) (11/11/24 18:00) Sertraline Hcl (Zoloft) (11/11/24 10:00) Gabapentin Capsule (Neurontin Capsule) (11/10/24 22:00) Propranolol Hcl Tablet (Inderal Tablet) (11/10/24 21:15) Test, Urine (11/10/24 21:13) Drug Screen (11/10/24 21:13) Vital Signs Date Time Temp Pulse Resp B/P (MAP) Pulse Ox O2 Delivery O2 Flow Rate FiO2 11/10/24 19:48 98.4 77 18 111/37 (61) 98 98.4 11/10/24 15:01 98.7 82 16 112/75 97 98.7 Laboratory Tests Test 11/10/24 15:40 Lactic Acid Level 1.3 mmol/L (0.4-2.0) White Blood Count 7.1 10^3/uL (4.4-10.8) Medications Medications Dose Ordered Sig/Rose Route Start Time Stop Time Status Last Admin Dose Admin Ceftriaxone Sodium 50 ml @ 100 mls/hr ONCE ONCE IV 11/10/24 16:30 11/10/24 16:59 DC 11/10/24 19:38 100 MLS/HR Sodium Chloride 1,000 ml @ 1,000 mls/hr Q1H ONCE IV 11/10/24 17:15 11/10/24 18:14 DC 11/10/24 19:39 1,000 MLS/HR Assessment/Plan Assessment/Plan Acute complicated UTI Acute pyelonephritis Left-sided nephrolithiasis with mild left hydronephrosis Left renal pelvis calculi measuring 1.3 cm. Incidental adrenal nodule 1.1 cm.17 Hounsfield units Anxiety Depression, no suicidal ideation Plan/recommendation -IV antibiotic with ceftriaxone. Pending urine culture. -CT abdomen and pelvis:Minimal left renal hydro nephrosis with left renal calculi largest within the left renal pelvis measuring up to 1.3 cm. Mild fat stranding adjacent to the left renal pelvis which may be from the calculus with infectious process not excluded. -Urology consultation for large left-sided renal calculi with mild hydronephrosis -IV fluid with normal saline 75 mL/hour. -continue home medication sertraline 100 mg p.o. daily, gabapentin 800 mg p.o. t.i.d.. Prn propranolol 20 mg for anxiety. Goals of care discussed greater than 24 minutes, full code status. Plan discussed with Dr. Myers Plan discussed with: Patient, Other My Orders Orders - MELCHOR HENRIQUEZ Procedure Category Date Status Time Admit ADMIT 11/10/24 Transmitted 21:07 * Urology Consult CONS 11/10/24 Transmitted 21:09 Sodium Chloride 0.9% PHA 11/10/24 Logged 21:15 Ceftriaxone 1gm/50ml PHA 11/11/24 Logged (Rocephin) 09:00 Urine Bacterial SHELLEY 11/10/24 Logged Culture 21:09 Ondansetron Hcl PHA 11/10/24 Logged (Zofran) 21:15 Morphine Sulfate PHA 11/10/24 Logged Injection 21:15 Morphine Sulfate PHA 11/10/24 Logged Injection 21:15 Tamsulosin PHA 11/10/24 Logged Hydrochloride (Flomax) 21:15 Tamsulosin PHA 11/11/24 Logged Hydrochloride (Flomax) 18:00 Sertraline Hcl PHA 11/11/24 Logged (Zoloft) 10:00 Gabapentin Capsule PHA 11/10/24 Logged (Neurontin Capsule) 22:00 Propranolol Hcl PHA 11/10/24 Logged Tablet (Inderal 21:15 Test, Urine LAB 11/10/24 Verified 21:13 Drug Screen LAB 11/10/24 Verified 21:13 Date of Service: Nov 10, 2024 Billing Provider: SELIN MALDONADO MD Common Visit Codes: [id number] INP/OBS CARE (HIGH) Secondary Visit Codes: [id number] CARE PLAN 30 MINUTES MELCHOR HENRIQUEZ RESIDENT Nov 10, 2024 21:14
[2024-11-10] MEDS ORDERED: MORPHINE SULFATE INJ 2 MG/ml SYRG IV PRN (21:15)
[2024-11-10] MEDS: TAMSULOSIN HYDROCHLORIDE 0.4 MG CAP PO ONE (21:44)
[2024-11-10] MEDS: GABAPENTIN 400 MG CAP PO SCH (22:00)
[2024-11-10] MEDS: MORPHINE SULFATE INJ 2 MG/ml SYRG IV PRN (22:08)
[2024-11-10 22:15] VITALS: BP 102/44; PULSE 57; RESP 16; TEMP 98.4; O2SAT 100
[2024-11-10] MEDS: SODIUM CHLORIDE 0.9% 1,000 ML IV SCH (23:16)
[2024-11-11] VITALS (7 sets, daily range): BP systolic 79–113; BP diastolic 41–65; PULSE 74–100; RESP 16–18; TEMP 98.3–98.4; O2SAT 92–100
[2024-11-11] MEDS: HYDROmorphone HCL 2 MG/ML VL/or syr IV PRN ×2 (03:13→16:43)
[2024-11-11] MEDS: PROPRANOLOL HCL 20 MG TAB PO PRN (05:57)
[2024-11-11 07:58] LABS: Amphetamine Screen, Urine Neg (NEGATIVE); Opiate Scree,Urine Pos (NEGATIVE)
[2024-11-11 08:00] LABS: Barbiturate Scree,Urine Neg (NEGATIVE)
[2024-11-11 08:01] LABS: Benzodiazephine Screen, Urine Pos (NEGATIVE); Cannabinoid Screen, Urine Neg (NEGATIVE); Cocaine Screen, Urine Neg (NEGATIVE); Phencyclidine Screen, Urine Neg (NEGATIVE)
[2024-11-11 09:54] LABS: Hematocrit 34.4 % (36.0-46.0); Hemoglobin 11.9 g/dL (12.2-16.2); Mean Corpuscular Hemoglobin 32.9 pg (28.0-32.0); Mean Corpuscular Volume 95.3 fL (80.0-100.0); Nucleated Red Blood Cells % 0.1 %
[2024-11-11] MEDS: SERTRALINE HCL 50 MG TAB PO SCH (10:00)
[2024-11-11 10:01] LABS: Chloride 113 mmol/L (98-107); Potassium 4.1 mmol/L (3.5-5.1); Sodium 142 mmol/L (136-145)
[2024-11-11 10:02] LABS: Anion Gap 7 (5-15); Carbon Dioxide 22 mmol/L (20-31)
[2024-11-11 10:07] LABS: Calcium 8.2 mg/dL (8.7-10.4); Glucose 80 mg/dL (74-106)
[2024-11-11 10:08] LABS: BUN/Creatinine Ratio 12.9 (10.0-20.0); Blood Urea Nitrogen 8 mg/dL (9-23)
[2024-11-11] MEDS: FAMOTIDINE 20 MG TAB PO SCH (10:24)
[2024-11-11] MEDS: SODIUM CHLORIDE 0.9% 3,000 ML IV ONE (16:07)
[2024-11-11] MEDS: ONDANSETRON HCL 4 MG/2 ML VIAL IV PRN (16:40)
[2024-11-11] MEDS: TAMSULOSIN HYDROCHLORIDE 0.4 MG CAP PO SCH (18:55)
[2024-11-11] MEDS: HYDROcodone-ACET 5/325MG TAB PO PRN (19:39)
[2024-11-12] VITALS (7 sets, daily range): BP systolic 111–125; BP diastolic 52–81; PULSE 68–102; RESP 12–21; TEMP 98.2–98.9; O2SAT 94–100
[2024-11-12] MEDS: HYDROmorphone HCL 2 MG/ML VL/or syr IV ONE (05:37)
--- NOTE | 2024-11-12 11:40 | DVHPN2 ---
Reviewed: Care Plan, H&P, Medications, Previous Orders, Radiology Changes from previous H/P or p: No Changes General: Per HPI Eyes: No Pain, No Vision change, No Conjunctivae inflammation, No Eyelid inflammation, No Other, No Redness ENT: No Ear pain, No Ear discharge, No Nose pain, No Nose discharge, No Nose congestion, No Mouth pain, No Mouth swelling, No Throat pain, No Throat swelling, No Other Cardiovascular: No Chest Pain, No Palpitations, No Orthopnea, No Paroxysmal Noc. Dyspnea, No Edema, No Lt Headedness, No Other Respiratory: No Cough, No Dry, No Shortness of breath, No SOB with excertion, No Wheezing, No Hemoptysis, No Pleuritic Pain, No Sputum, No Other Gastrointestinal: Nausea, Vomiting Genitourinary: No Dysuria, No Frequency, No Incontinence, No Hematuria, No Retention, No Other Musculoskeletal: No other, No neck pain, No shoulder pain, No arm pain, No back pain, No hand pain, No leg pain, No foot pain Skin: No Rash, No Lesions, No Jaundice, No Bruising, No Other Objective Vitals Vital Signs Date Time Temp Pulse Resp B/P (MAP) Pulse Ox O2 Delivery O2 Flow Rate FiO2 11/12/24 09:00 98.9 80 21 111/81 (91) 100 98.9 11/11/24 19:54 Room Air* 0 21 Intake/Output Intake and Output 11/12/24 07:00 Intake Total 4210 ml Balance 4210 ml Intake Oral 1660 ml IV Total 2550 ml # Voids 9 # Bowel Movements 2 General Appearance: Alert, Oriented X3 HEENT: Atraumatic Cardiovascular: Normal S1, Normal S2 Abdomen: Normal bowel sounds, Soft Neuro: Normal gait, Normal speech Medications Current Medications Medications Dose Ordered Sig/Rose Route Start Time Stop Time Status Last Admin Dose Admin Sodium Chloride 1,000 ml @ 75 mls/hr [id number] IV 11/10/24 21:15 11/12/24 00:28 75 MLS/HR Ceftriaxone Sodium 50 ml @ 100 mls/hr DAILY@09 IV 11/11/24 09:00 11/12/24 08:59 100 MLS/HR Ondansetron HCl 4 mg Q4HPRN PRN IV 11/10/24 21:15 11/11/24 16:40 4 MG Morphine Sulfate 1 mg Q6HP PRN IV 11/10/24 21:15 Tamsulosin HCl 0.4 mg QPM PO 11/11/24 18:00 11/11/24 18:55 0.4 MG Sertraline HCl 100 mg DAILY PO 11/11/24 10:00 Gabapentin 800 mg TID PO 11/10/24 22:00 11/12/24 04:58 800 MG Propranolol HCl 20 mg BID PRN PO 11/10/24 21:15 11/12/24 04:59 20 MG Famotidine 20 mg Q12HR PO 11/11/24 10:00 11/12/24 09:02 20 MG Hydromorphone HCl 0.25 mg Q6HPRN PRN IV 11/11/24 16:00 11/12/24 08:54 0.25 MG Acetaminophen/ Hydrocodone Bitart 1 tab Q6HPRN PRN PO 11/11/24 16:00 11/12/24 04:58 1 TAB Laboratory Results Laboratory Tests 11/11/24 09:11 Urinalysis Test 11/10/24 15:41 Urine Color Light-orange (Yellow) Urine Clarity Ex.turbid (Clear) Urine pH 6.0 (5.0-9.0) Urine Specific [place] 1.027 (1.001-1.035) Urine Protein 2+ (Negative) H Urine Ketones Negative (Negative) Urine Blood 1+ /uL (Negative) H Urine Nitrite 2+ (Negative) H Urine Bilirubin Negative (Negative) Urine Urobilinogen Normal mg/dL (Negative) Urine Leukocyte Esterase 3+ /uL (Negative) Urine RBC 117 /hpf (0 - 4) Urine WBC Clumps Present /hpf (None Seen) Urine Microscopic WBC 1416 /HPF (0-5) H Urine Squamous Epithelial Cells Mod /hpf (<5) Urine Bacteria Few /hpf (None Seen) H Urine Mucus Few (None Seen) Urine Glucose Normal mg/dL (Normal) Urine Test Negative (Negative) Microbiology Microbiology Date/Time Source Procedure Growth Status 11/10/24 15:41 Voided Urine Urine Culture - Preliminary Resulted Labs and/or images reviewed: Labs reviewed by me, Image(s) reviewed by me Assessment/Plan Assessment/Plan Patient is 34-year-old female with past medical history of nephrolithiasis, endometriosis, anxiety, depression who came to the hospital with a chief complaint of acute onset of left-sided flank pain since last two days. Flank pain is 9/10, throbbing in nature, worsened over the time, associated with nausea and two episodes of vomiting. As per patient he went to one of the hospital in [place] where she was told that she has 1.2 cm left-sided renal stone, however she did not seek any other treatment and came to the [facility]. Mainly located in left flank pain, not associated with increased urinary frequency however patient had burning micturition at the end. Color of the urine is pale yellow, which did not change from regular. Last menstrual period early October. Patient denying any other symptoms at this point. Past medical history: Nephrolithiasis, endometriosis, anxiety, depression. Past surgical history: Lithotripsy for nephrolithiasis in 2019. Personal history: Smokes half a pack cigarettes for last 10 years. Denying any other recreational drug use. Allergy: None Home medication: Zoloft 100 mg p.o. daily, gabapentin 800 mg p.o. t.i.d., Xanax 1 mg b.i.d. for anxiety, propranolol as needed for anxiety. Acute complicated UTI Acute pyelonephritis Left-sided nephrolithiasis with mild left hydronephrosis Left renal pelvis calculi measuring 1.3 cm. Incidental adrenal nodule 1.1 cm.17 Hounsfield units Anxiety Depression, no suicidal ideation 11/11/2024: pending evaluation by urology pre-ricci urine cx indicates gram neg infection, started on ceftriaxone Plan discussed with: Patient My Orders Orders - ROBERT KAYE DO Procedure Category Date Status Time Hydromorphone PHA 11/11/24 In Process Injection (Dilaudid 16:00 Hydrocodone-Acet PHA 11/11/24 In Process 5/325mg Tab (Corinne 16:00 * Urology Consult CONS 11/12/24 Transmitted 09:09 Date of Service: Nov 11, 2024 Billing Provider: ROBERT KAYE DO Common Visit Codes: [id number] INP/OBS CARE(HIGH) ROBERT KAYE DO Nov 12, 2024 11:40
--- NOTE | 2024-11-12 11:45 | DVHPN2 ---
Reviewed: Care Plan, H&P, Medications, Previous Orders, Radiology Changes from previous H/P or p: No Changes General: Per HPI Eyes: No Pain, No Vision change, No Conjunctivae inflammation, No Eyelid inflammation, No Other, No Redness ENT: No Ear pain, No Ear discharge, No Nose pain, No Nose discharge, No Nose congestion, No Mouth pain, No Mouth swelling, No Throat pain, No Throat swelling, No Other Cardiovascular: No Chest Pain, No Palpitations, No Orthopnea, No Paroxysmal Noc. Dyspnea, No Edema, No Lt Headedness, No Other Respiratory: No Cough, No Dry, No Shortness of breath, No SOB with excertion, No Wheezing, No Hemoptysis, No Pleuritic Pain, No Sputum, No Other Gastrointestinal: Nausea, Vomiting Genitourinary: No Dysuria, No Frequency, No Incontinence, No Hematuria, No Retention, No Other Musculoskeletal: No other, No neck pain, No shoulder pain, No arm pain, No back pain, No hand pain, No leg pain, No foot pain Skin: No Rash, No Lesions, No Jaundice, No Bruising, No Other Objective Vitals Vital Signs Date Time Temp Pulse Resp B/P (MAP) Pulse Ox O2 Delivery O2 Flow Rate FiO2 11/12/24 09:00 98.9 80 21 111/81 (91) 100 98.9 11/11/24 19:54 Room Air* 0 21 Intake/Output Intake and Output 11/12/24 07:00 Intake Total 4210 ml Balance 4210 ml Intake Oral 1660 ml IV Total 2550 ml # Voids 9 # Bowel Movements 2 General Appearance: Alert, Oriented X3 HEENT: Atraumatic Cardiovascular: Normal S1, Normal S2 Abdomen: Normal bowel sounds, Soft Neuro: Normal gait, Normal speech Medications Current Medications Medications Dose Ordered Sig/Rose Route Start Time Stop Time Status Last Admin Dose Admin Sodium Chloride 1,000 ml @ 75 mls/hr [id number] IV 11/10/24 21:15 11/12/24 00:28 75 MLS/HR Ceftriaxone Sodium 50 ml @ 100 mls/hr DAILY@09 IV 11/11/24 09:00 11/12/24 08:59 100 MLS/HR Ondansetron HCl 4 mg Q4HPRN PRN IV 11/10/24 21:15 11/11/24 16:40 4 MG Morphine Sulfate 1 mg Q6HP PRN IV 11/10/24 21:15 Tamsulosin HCl 0.4 mg QPM PO 11/11/24 18:00 11/11/24 18:55 0.4 MG Sertraline HCl 100 mg DAILY PO 11/11/24 10:00 Gabapentin 800 mg TID PO 11/10/24 22:00 11/12/24 04:58 800 MG Propranolol HCl 20 mg BID PRN PO 11/10/24 21:15 11/12/24 04:59 20 MG Famotidine 20 mg Q12HR PO 11/11/24 10:00 11/12/24 09:02 20 MG Hydromorphone HCl 0.25 mg Q6HPRN PRN IV 11/11/24 16:00 11/12/24 08:54 0.25 MG Acetaminophen/ Hydrocodone Bitart 1 tab Q6HPRN PRN PO 11/11/24 16:00 11/12/24 04:58 1 TAB Laboratory Results Laboratory Tests 11/11/24 09:11 Urinalysis Test 11/10/24 15:41 Urine Color Light-orange (Yellow) Urine Clarity Ex.turbid (Clear) Urine pH 6.0 (5.0-9.0) Urine Specific [place] 1.027 (1.001-1.035) Urine Protein 2+ (Negative) H Urine Ketones Negative (Negative) Urine Blood 1+ /uL (Negative) H Urine Nitrite 2+ (Negative) H Urine Bilirubin Negative (Negative) Urine Urobilinogen Normal mg/dL (Negative) Urine Leukocyte Esterase 3+ /uL (Negative) Urine RBC 117 /hpf (0 - 4) Urine WBC Clumps Present /hpf (None Seen) Urine Microscopic WBC 1416 /HPF (0-5) H Urine Squamous Epithelial Cells Mod /hpf (<5) Urine Bacteria Few /hpf (None Seen) H Urine Mucus Few (None Seen) Urine Glucose Normal mg/dL (Normal) Urine Test Negative (Negative) Microbiology Microbiology Date/Time Source Procedure Growth Status 11/10/24 15:41 Voided Urine Urine Culture - Preliminary Resulted Assessment/Plan Assessment/Plan Patient is 34-year-old female with past medical history of nephrolithiasis, endometriosis, anxiety, depression who came to the hospital with a chief complaint of acute onset of left-sided flank pain since last two days. Flank pain is 9/10, throbbing in nature, worsened over the time, associated with nausea and two episodes of vomiting. As per patient he went to one of the hospital in [place] where she was told that she has 1.2 cm left-sided renal stone, however she did not seek any other treatment and came to the [facility]. Mainly located in left flank pain, not associated with increased urinary frequency however patient had burning micturition at the end. Color of the urine is pale yellow, which did not change from regular. Last menstrual period early October. Patient denying any other symptoms at this point. Past medical history: Nephrolithiasis, endometriosis, anxiety, depression. Past surgical history: Lithotripsy for nephrolithiasis in 2019. Personal history: Smokes half a pack cigarettes for last 10 years. Denying any other recreational drug use. Allergy: None Home medication: Zoloft 100 mg p.o. daily, gabapentin 800 mg p.o. t.i.d., Xanax 1 mg b.i.d. for anxiety, propranolol as needed for anxiety. Acute complicated UTI Acute pyelonephritis Left-sided nephrolithiasis with mild left hydronephrosis Left renal pelvis calculi measuring 1.3 cm. Incidental adrenal nodule 1.1 cm.17 Hounsfield units Anxiety Depression, no suicidal ideation 11/11/2024: pending evaluation by urology pre-ricci urine cx indicates gram neg infection, started on ceftriaxone 11/12/2024: continue with iv abx. pending culture sensitivity awaiting evaluation by urology Plan discussed with: Patient My Orders Orders - ROBERT KAYE DO Procedure Category Date Status Time Hydromorphone PHA 11/11/24 In Process Injection (Dilaudid 16:00 Hydrocodone-Acet PHA 11/11/24 In Process 5/325mg Tab ([place] 16:00 * Urology Consult CONS 11/12/24 Transmitted 09:09 Date of Service: Nov 12, 2024 Billing Provider: ROBERT KAYE DO Common Visit Codes: [id number] INP/OBS CARE(HIGH) ROBERT KAYE DO Nov 12, 2024 11:45
--- NOTE | 2024-11-12 20:30 | DVHINCON2 ---
Date of service: Nov 12, 2024 Referring Physician Hospitalist Reason for Consultation 1.2 cm left renal pelvic stone admitted to [facility] "for urologist to perform lithotripsy". History of Present Illness Patient admitted for left flank pain with below findings on CT Scan. She was admitted for lithotripsy. PATIENT: MISTI TEIXEIRA ACCT: [id number] UNIT: [id number] : 1990 LOC: ER ROOM / BED: / AGE / SEX: 34 / F ADM STATUS: REG ER SERVICE 1704 ORDERING PHYSICIAN: BELEM LAW DO PROCEDURE(s): ABPL - CT AB PEL WO CON-NO ORAL OR IV REASON: kidney stone L ORDER NUMBER(s): [id number], ACCESSION NUMBER(s): [id number] Exam: CT CT AB PEL WO CON-NO ORAL OR IV History: kidney stone L Comparison Study: CT CT AB PEL WO CON-NO ORAL OR IV on DOS: 05/21/24 TECHNIQUE: Multidetector CT of the abdomen and pelvis without IV contrast. Axial, coronal and sagittal multiplanar reformats were obtained from the axial data set by the technologist. Radiation Dose Information: CT Dose: CTDI volume is 5.26 mGy. Dose-length product is 3.92 mGy*cm FINDINGS: Bibasilar atelectasis. Partially visualized heart is unremarkable. Mild hepatomegaly. Otherwise, liver, spleen, pancreas and right adrenal glands unremarkable. 1.1 cm left adrenal nodule measuring up to 17 Hounsfield units. Right kidney, ureter and urinary bladder unremarkable. 3 mm left renal upper pole calculus with 5 mm and 4 mm left renal lower pole calculus and additional 0.8 x 1.2 cm calculus within the left renal pelvis. Minimal left Hydronephrosis. No obstructing ureteral calculus is noted. Uterus is unremarkable. 3 cm right ovarian cyst. Small amount of free fluid within the cul-de-sac which is most likely physiologic. Mild wall thickening of the mid stomach. The small bowel loops unremarkable. Appendix is unremarkable. Mild wall thickening of the ascending colon. Mild wall thickening of the sigmoid and rectum. Small to moderate amount of fecal material within the colon. No evidence of intraperitoneal free air or free fluid. Mild mesenteric edema. No evidence of aortic aneurysm. No significant lymphadenopathy. Minimal body wall edema. No evidence of acute osseous abnormalities. IMPRESSION: Minimal left renal hydro nephrosis with left renal calculi largest within the left renal pelvis measuring up to 1.3 cm. Mild fat stranding adjacent to the left renal pelvis which may be from the calculus with infectious process not excluded. 1.1 cm left adrenal nodule measuring up to 17 Hounsfield [address]/ MRI should be considered for further evaluation. Wall thickening of the ascending colon, sigmoid and rectum which appears to be from inadequate distention. Mild wall thickening of the mid stomach which may be from inadequate distention gastritis not excluded. ATED BY: ALANNAH SAM DO DICTATED DATE/TIME: 11/10/241815 Past Medical History Kidney stones Endometriosis Past Surgical History Past surgical history: Lithotripsy for nephrolithiasis in 2019. Allergies: Coded Allergies: No Known Drug Allergy (Verified Allergy, Unknown, 03/12/21) Home Meds Active Scripts Acetaminophen (Tylenol 8 Hour Arthritis) 650 Mg Tab, 650 MG PO TID, #20 TAB Prov:ROGE MULLER 03/12/21 Reported Medications Gabapentin (Gabapentin) 800 Mg Tab, 1 TAB PO TID 11/10/24 Sertraline Hcl (Sertraline Hcl) 100 Mg Tab, 1 TAB PO DAILY 11/10/24 Review of Systems Constitutional: No: Fever, Chills, Sweats, Weakness, Malaise, Other Eyes: No: Pain, Vision change, Conjunctivae inflammation, Eyelid inflammation, Other, Redness ENT: No: Ear pain, Ear discharge, Nose pain, Nose discharge, Nose congestion, Mouth pain, Mouth swelling, Throat pain, Throat swelling, Other Respiratory: No: Cough, Dry, Shortness of breath, SOB with excertion, Wheezing, Hemoptysis, Pleuritic Pain, Sputum, Wheezing, Other Cardiovascular: No: Chest Pain, Palpitations, Orthopnea, Paroxysmal Noc. Dyspnea, Edema, Lt Headedness, Other Gastrointestinal: Nausea, Vomiting Genitourinary: No Dysuria, No Frequency, No Incontinence, No Hematuria, No Retention, No Other Musculoskeletal: No: other, neck pain, shoulder pain, arm pain, back pain, hand pain, leg pain, foot pain Skin: No: Rash, Lesions, Jaundice, Bruising, Other Neurological: No: Weakness, Numbness, Incoordination, Change in speech, Confusion, Seizures, Other Allergies: Coded Allergies: No Known Drug Allergy (Verified Allergy, Unknown, 03/12/21) Medications Current Medications Medications Dose Ordered Sig/Rose Route Start Time Stop Time Status Last Admin Dose Admin Sodium Chloride 1,000 ml @ 75 mls/hr [id number] IV 11/10/24 21:15 UNV Ceftriaxone Sodium 50 ml @ 100 mls/hr DAILY@09 IV 11/11/24 09:00 UNV Ondansetron HCl 4 mg Q4HPRN PRN IV 11/10/24 21:15 UNV Morphine Sulfate 1 mg Q6HP PRN IV 11/10/24 21:15 UNV Morphine Sulfate 1 mg Q6HP PRN IV 11/10/24 21:15 UNV Tamsulosin HCl 0.4 mg QPM PO 11/11/24 18:00 UNV Sertraline HCl 100 mg DAILY PO 11/11/24 10:00 UNV Gabapentin 800 mg TID PO 11/10/24 22:00 UNV Propranolol HCl 20 mg BID PRN PO 11/10/24 21:15 UNV Vital Signs Vital Signs Date Time Temp Pulse Resp B/P (MAP) Pulse Ox O2 Delivery O2 Flow Rate FiO2 11/12/24 16:30 98.6 72 20 118/61 (80) 100 98.6 11/12/24 08:00 Room Air* 0 21 Physical Exam Vital Signs Date Time Temp Pulse Resp B/P (MAP) Pulse Ox O2 Delivery O2 Flow Rate FiO2 11/10/24 19:48 98.4 77 18 111/37 (61) 98 98.4 Exam General Appearance: Cooperative. Well developed. Well nourished. NAD Head Exam: Normal inspection Neck Exam: Normal inspection. Non-tender. Normal alignment Pulmonary/Respiratory: Chest non-tender. Clear bilateral breath sounds Cardiovascular/Chest: Regular rate and rhythm. No murmurs. No JVD. Peripheral Pulses: 2+ Radial (R). 2+ Radial (L). 2+ Pedal (R). 2+ Pedal (L) Abdominal Exam: Normal bowel sounds. Soft. Tenderness over palpation of left costophrenic angle. No hepatospenomegaly. No masses Ankle Exam: Negative ankle edema Lower extremities: Negative lower extremity edema Neuro/Mental Status: A&O x4. Coherent Thoughts/Psych: Normal thought pattern. Appropriate mood and affect. Good judgement and insight Appearance: In no acute distress Skin Exam: Normal inspection. Normal color. Warm. Dry Labs/Diagnostic Data Labs Test 11/11/24 09:11 11/10/24 16:22 11/10/24 15:41 11/10/24 15:40 Range/Units White Blood Count 7.8 4.4-10.8 10^3/uL Red Blood Count 3.61 L 4.0-5.20 10^6/uL Hemoglobin 11.9 L 12.2-16.2 g/dL Hematocrit 34.4 #L 36.0-46.0 % Mean Corpuscular Volume 95.3 80.0-100.0 fL Mean Corpuscular Hemoglobin 32.9 H 28.0-32.0 pg Mean Corpuscular Hemoglobin Concent 34.5 32.0-36.0 g/dL Red Cell Distribution Width 13.5 11.8-14.3 % Platelet Count 337 140-450 10^3/uL Mean Platelet Volume 8.3 6.9-10.8 fL Neutrophils (%) (Auto) 63.6 37.0-80.0 % Lymphocytes (%) (Auto) 31.2 10.0-50.0 % Monocytes (%) (Auto) 3.7 0.0-12.0 % Eosinophils (%) (Auto) 1.2 0.0-7.0 % Basophils (%) (Auto) 0.3 0.0-2.0 % Neutrophils # (Auto) 5.0 1.6-8.6 10 ^3/uL Lymphocytes # (Auto) 2.4 0.4-5.4 10 ^3/uL Monocytes # (Auto) 0.3 0-1.3 10 ^3/uL Eosinophils # (Auto) 0.1 0-0.8 10 ^3/uL Basophils # (Auto) 0 0-0.2 10 ^3/uL Nucleated Red Blood Cells 0.1 % Sodium Level 142 136-145 mmol/L Potassium Level 4.1 3.5-5.1 mmol/L Chloride Level 113 H 98-107 mmol/L Carbon Dioxide Level 22 20-31 mmol/L Anion Gap 7 5-15 Blood Urea Nitrogen 8 L 9-23 mg/dL Creatinine 0.62 0.550-1.02 mg/dL Glomerular Filtration Rate Calc 120 >90 mL/min BUN/Creatinine Ratio 12.9 10.0-20.0 Serum Glucose 80 74-106 mg/dL Calcium Level 8.2 L 8.7-10.4 mg/dL POC Glucose 74 70-106 mg/dl Urine Color Light-orange Yellow Urine Clarity Ex.turbid Clear Urine pH 6.0 5.0-9.0 Urine Specific [place] 1.027 1.001-1.035 Urine Protein 2+ H Negative Urine Ketones Negative Negative Urine Blood 1+ H Negative /uL Urine Nitrite 2+ H Negative Urine Bilirubin Negative Negative Urine Urobilinogen Normal Negative mg/dL Urine Leukocyte Esterase 3+ Negative /uL Urine RBC 117 0 - 4 /hpf Urine WBC Clumps Present None Seen /hpf Urine Microscopic WBC 1416 H 0-5 /HPF Urine Squamous Epithelial Cells Mod <5 /hpf Urine Bacteria Few H None Seen /hpf Urine Mucus Few None Seen Urine Glucose Normal Normal mg/dL Urine Test Negative Negative Urine Opiates Screen Pos NEGATIVE Urine Fentanyl Screen Neg NEGATIVE Urine Barbiturates Screen Neg NEGATIVE Urine Phencyclidine Screen Neg NEGATIVE Urine Amphetamines Screen Neg NEGATIVE Urine Benzodiazepines Screen Pos NEGATIVE Urine Cocaine Screen Neg NEGATIVE Urine Cannabinoids Screen Neg NEGATIVE Lactic Acid Level 1.3 0.4-2.0 mmol/L Total Bilirubin 0.4 0.2-1.0 mg/dL Aspartate Amino Transferase (AST) 13 13-40 U/L Alanine Aminotransferase (ALT) 12 7-40 U/L Alkaline Phosphatase 66 46-116 U/L Total Protein 6.7 5.7-8.2 g/dL Albumin 3.8 3.2-4.8 g/dL Microbiology Date/Time Source Procedure Growth Status 11/10/24 15:41 Voided Urine Urine Culture - Preliminary Resulted Assessment Left hydronephrosis Left renal pelvic stone, 13 mm Left renal colic, intractable Plan/Recommendation Left ureteroscopic laser lithotripsy with CVAC renal evacuation and stent placement Plan discussed with: Patient, Other JEANCARLOS CHAUHAN MD Nov 12, 2024 20:30
[2024-11-13] VITALS (8 sets, daily range): BP systolic 104–116; BP diastolic 44–81; PULSE 67–98; RESP 16–21; TEMP 98.2–98.7; O2SAT 95–100
[2024-11-13] MEDS ORDERED: ONDANSETRON HCL 4 MG/2 ML VIAL IV PRN (12:00)
[2024-11-13] MEDS: SUCCINYLCHOLINE CHLORIDE 20 MG/ML 10ML VIAL IV ONE (12:02)
[2024-11-13] MEDS ORDERED: fentaNYL CITRATE 100 MCG/2 ML VL ONE ×2 (12:06→13:34)
[2024-11-13] MEDS ORDERED: HYDROmorphone HCL 2 MG/ML VL/or syr ONE (12:08)
[2024-11-13] MEDS: IOHEXOL 300 MG/ML 100ML BOTTLE IJ ONE (12:10)
[2024-11-13] MEDS ORDERED: ONDANSETRON HCL 4 MG/2 ML VIAL ONE (12:31)
[2024-11-13] MEDS ORDERED: ROCURONIUM 10MG/ML 10ML VIAL IV ONE (12:34)
[2024-11-13] MEDS ORDERED: SUGAMMADEX 200mg/2ml Vial (100MG/ML) IV ONE (13:21)
--- NOTE | 2024-11-13 13:33 | DVHNC2 ---
Procedure - OPERATIVE REPORT Pre-op. Diagnosis: Kidney Stone -Left- 1.3 cm and 6 mm Post-op. Diagnosis: Same as pre-op diagnosis Operation: Left ureteroscopy/pyeloscopy, laser lithotripsy with renal evacuation Cystoscopy with left ureteral stent placement Anesthesia: General Indications: Patient with large 1.3 cm left renal pelvic stone and 6 mm left lower pole stone. The indications, risks, complications, alternatives and benefits were discussed. All questions were encouraged and answered. Patient is aware of risks/complications including but not limited to infection, bleeding, persistent pain, possible ureteral injury/ureteral stricture requiring additional surgical management, urethral injury, urethral stricture and meatal stenosis. Details of Procedure: After obtaining the consent, patient was taken to OR suite and underwent general anesthesia. Preop antibiotic was given. Timeout was performed and deemed to be correct. With the patient positioned in the lithotomy, the area of the genitalia prepped and draped in usual sterile fashion. 22 F Cystoscope was used to access the urethra and bladder. The left ureteral stent was grasped and removed. A sensor tip guide wire was advanced through the scope into the left ureter all the way to the left collecting system under fluoroscopic control. I advanced 12x14 Fr 36 cm access sheet over the working wire all the way to the proximal ureter under fluoroscopy control, then the inner sheet and the working wire was removed. The Digital flexible ureteroscope was advanced through the access sheet. The stones were visualized. Now using a 200 micron laser fiber the stone was blasted into small fragments and suctioned out while in dusting mode. Ureteroscope was then removed and guidewire replaced. Ureteral sheath was then removed. At this point the cystoscope was advanced over the wire into the bladder. Now a 5 Fr x [address] ureteral stent was advanced under direct visualization through the left ureteral orifice into the kidney. Good proximal curl was seen in the renal pelvis under fluoroscopy and the distal curl was seen in the bladder once the wire was removed. Patient was placed in supine position in the OR table. Anesthesia was reversed, patient was extubated and transferred awake and in stable conditions to recovery room. Specimens: renal stone fragments Complications: None Findings: Notes: 5 Fr x [address] ureteral stent - Left JEANCARLOS CHAUHAN MD Nov 13, 2024 13:33
[2024-11-13] MEDS: HYDROmorphone HCL 2 MG/ML VL/or syr IV PRN (14:00)
--- NOTE | 2024-11-13 14:01 | DVHPN2 ---
Reviewed: Care Plan, H&P, Medications, Previous Orders, Radiology Changes from previous H/P or p: No Changes General: Per HPI Eyes: No Pain, No Vision change, No Conjunctivae inflammation, No Eyelid inflammation, No Other, No Redness ENT: No Ear pain, No Ear discharge, No Nose pain, No Nose discharge, No Nose congestion, No Mouth pain, No Mouth swelling, No Throat pain, No Throat swelling, No Other Cardiovascular: No Chest Pain, No Palpitations, No Orthopnea, No Paroxysmal Noc. Dyspnea, No Edema, No Lt Headedness, No Other Respiratory: No Cough, No Dry, No Shortness of breath, No SOB with excertion, No Wheezing, No Hemoptysis, No Pleuritic Pain, No Sputum, No Other Gastrointestinal: Nausea, Vomiting Genitourinary: No Dysuria, No Frequency, No Incontinence, No Hematuria, No Retention, No Other Musculoskeletal: No other, No neck pain, No shoulder pain, No arm pain, No back pain, No hand pain, No leg pain, No foot pain Skin: No Rash, No Lesions, No Jaundice, No Bruising, No Other Objective Vitals Vital Signs Date Time Temp Pulse Resp B/P (MAP) Pulse Ox O2 Delivery O2 Flow Rate FiO2 11/13/24 09:00 98.7 78 18 112/72 (85) 100 98.7 11/13/24 08:00 Room Air* 0 21 Intake/Output Intake and Output 11/13/24 07:00 Intake Total 900 ml Output Total 0 ml Balance 900 ml Intake Oral 850 ml IV Total 50 ml Output Urine Total 0 ml # Bowel Movements 3 General Appearance: Alert, Oriented X3 HEENT: Atraumatic Cardiovascular: Normal S1, Normal S2 Abdomen: Normal bowel sounds, Soft Neuro: Normal gait, Normal speech Medications Current Medications Medications Dose Ordered Sig/Rose Route Start Time Stop Time Status Last Admin Dose Admin Sodium Chloride 1,000 ml @ 75 mls/hr [id number] IV 11/10/24 21:15 11/13/24 05:15 75 MLS/HR Ceftriaxone Sodium 50 ml @ 100 mls/hr DAILY@09 IV 11/11/24 09:00 11/13/24 08:22 100 MLS/HR Ondansetron HCl 4 mg Q4HPRN PRN IV 11/10/24 21:15 11/13/24 04:02 4 MG Morphine Sulfate 1 mg Q6HP PRN IV 11/10/24 21:15 Tamsulosin HCl 0.4 mg QPM PO 11/11/24 18:00 11/12/24 18:09 0.4 MG Sertraline HCl 100 mg DAILY PO 11/11/24 10:00 Gabapentin 800 mg TID PO 11/10/24 22:00 11/13/24 05:14 800 MG Propranolol HCl 20 mg BID PRN PO 11/10/24 21:15 11/12/24 22:56 20 MG Famotidine 20 mg Q12HR PO 11/11/24 10:00 11/12/24 21:27 20 MG Hydromorphone HCl 0.25 mg Q6HPRN PRN IV 11/11/24 16:00 11/13/24 03:59 0.25 MG Acetaminophen/ Hydrocodone Bitart 1 tab Q6HPRN PRN PO 11/11/24 16:00 11/13/24 08:23 1 TAB Laboratory Results Laboratory Tests 11/11/24 09:11 Urinalysis Test 11/10/24 15:41 Urine Color Light-orange (Yellow) Urine Clarity Ex.turbid (Clear) Urine pH 6.0 (5.0-9.0) Urine Specific [place] 1.027 (1.001-1.035) Urine Protein 2+ (Negative) H Urine Ketones Negative (Negative) Urine Blood 1+ /uL (Negative) H Urine Nitrite 2+ (Negative) H Urine Bilirubin Negative (Negative) Urine Urobilinogen Normal mg/dL (Negative) Urine Leukocyte Esterase 3+ /uL (Negative) Urine RBC 117 /hpf (0 - 4) Urine WBC Clumps Present /hpf (None Seen) Urine Microscopic WBC 1416 /HPF (0-5) H Urine Squamous Epithelial Cells Mod /hpf (<5) Urine Bacteria Few /hpf (None Seen) H Urine Mucus Few (None Seen) Urine Glucose Normal mg/dL (Normal) Urine Test Negative (Negative) Microbiology Microbiology Date/Time Source Procedure Growth Status 11/10/24 15:41 Voided Urine Urine Culture - Preliminary Resulted Assessment/Plan Assessment/Plan Patient is 34-year-old female with past medical history of nephrolithiasis, endometriosis, anxiety, depression who came to the hospital with a chief complaint of acute onset of left-sided flank pain since last two days. Flank pain is 9/10, throbbing in nature, worsened over the time, associated with nausea and two episodes of vomiting. As per patient he went to one of the hospital in [place] where she was told that she has 1.2 cm left-sided renal stone, however she did not seek any other treatment and came to the [facility]. Mainly located in left flank pain, not associated with increased urinary frequency however patient had burning micturition at the end. Color of the urine is pale yellow, which did not change from regular. Last menstrual period early October. Patient denying any other symptoms at this point. Past medical history: Nephrolithiasis, endometriosis, anxiety, depression. Past surgical history: Lithotripsy for nephrolithiasis in 2019. Personal history: Smokes half a pack cigarettes for last 10 years. Denying any other recreational drug use. Allergy: None Home medication: Zoloft 100 mg p.o. daily, gabapentin 800 mg p.o. t.i.d., Xanax 1 mg b.i.d. for anxiety, propranolol as needed for anxiety. Acute complicated UTI Acute pyelonephritis Left-sided nephrolithiasis with mild left hydronephrosis Left renal pelvis calculi measuring 1.3 cm. Incidental adrenal nodule 1.1 cm.17 Hounsfield units Anxiety Depression, no suicidal ideation 11/11/2024: pending evaluation by urology pre-ricci urine cx indicates gram neg infection, started on ceftriaxone 11/12/2024: continue with iv abx. pending culture sensitivity awaiting evaluation by urology 11/13/2024: pt underwent stent placement (ureteral), please refer to urology procedure record Plan discussed with: Patient My Orders Orders - ROBERT KAYE DO Procedure Category Date Status Time * Urology Consult CONS 11/12/24 Transmitted 15:18 Date of Service: Nov 13, 2024 Billing Provider: ROBERT KAYE DO Common Visit Codes: [id number] INP/OBS CARE(HIGH) ROBERT KAYE DO Nov 13, 2024 14:01
[2024-11-13] MEDS: ACETAMINOPHEN IV 1000 MG/100ML (10MG/ML) IV PRN (14:45)
[2024-11-13] MEDS: OXYBUTYNIN CHL 5 MG TAB PO STA (15:00)
[2024-11-13] MEDS: ACETAMINOPHEN IV 100 ML IV ONE (15:00)
--- NOTE | 2024-11-13 16:15 | DVH ---
C-ARM FLUOROSCOPY: PROCEDURE: Lithotripsy FLUOROSCOPY TIME: 17.5 seconds Air Kerma: 1.54 mgy FINDINGS: Spot intraoperative C arm radiographs demonstrating lithotripsy. IMPRESSION: Please refer to surgical report for detailed findings.
[2024-11-14 01:00] VITALS: BP 102/54; PULSE 95; RESP 17; TEMP 98.4; O2SAT 99
[2024-11-14 05:00] VITALS: BP 111/58; PULSE 81; RESP 17; TEMP 98.3; O2SAT 100
[2024-11-14 09:00] VITALS: BP 142/89; PULSE 86; RESP 20; TEMP 98.4; O2SAT 100
--- NOTE | 2024-11-14 09:31 | DVHPN2 ---
Progress Note - Dictate Date Seen: Nov 14, 2024 Has the PT tested + for MRSA If YES, has PT been informed?: No Medical Necessity Reason Pt with a Central, PICC or Fol: No Medical Necessity Reason POD#1 s/p left URSLL with CVAC renal evacuation and stent placement Subjective Still feels like stones are there. Left flank pain and requiring constant pain meds. Dilaudid/Morphine and Percocet on schedule vital signs Vital Sign Date Time Temp Pulse Resp B/P (MAP) Pulse Ox O2 Delivery O2 Flow Rate FiO2 11/14/24 05:46 83 18 128/73 11/14/24 05:00 98.3 100 98.3 11/13/24 20:00 Room Air* 0 21 Total Intake and Output 11/13/24 11/13/24 11/14/24 15:00 23:00 07:00 Intake Total 300 ml 50 ml 800 ml Balance 300 ml 50 ml 800 ml medications Current Medications Medications Dose Ordered Sig/Rose Route Start Time Stop Time Status Last Admin Dose Admin Sodium Chloride 1,000 ml @ 75 mls/hr [id number] IV 11/10/24 21:15 11/13/24 05:15 75 MLS/HR Ceftriaxone Sodium 50 ml @ 100 mls/hr DAILY@09 IV 11/11/24 09:00 11/14/24 09:18 100 MLS/HR Ondansetron HCl 4 mg Q4HPRN PRN IV 11/10/24 21:15 11/14/24 05:11 4 MG Morphine Sulfate 1 mg Q6HP PRN IV 11/10/24 21:15 Tamsulosin HCl 0.4 mg QPM PO 11/11/24 18:00 11/13/24 17:43 0.4 MG Sertraline HCl 100 mg DAILY PO 11/11/24 10:00 Gabapentin 800 mg TID PO 11/10/24 22:00 11/14/24 05:16 800 MG Propranolol HCl 20 mg BID PRN PO 11/10/24 21:15 11/14/24 03:28 20 MG Famotidine 20 mg Q12HR PO 11/11/24 10:00 11/14/24 09:17 20 MG Hydromorphone HCl 0.25 mg Q6HPRN PRN IV 11/11/24 16:00 10/8/25 05:16 0.25 MG Acetaminophen/ Hydrocodone Bitart 1 tab Q6HPRN PRN PO 11/11/24 16:00 11/14/24 09:22 1 TAB laboratory and microbiology Laboratory Tests 11/11/24 09:11 Test 11/11/24 09:11 Range/Units Serum Glucose 80 74-106 mg/dL Problem List Left ureteral stent in situ POD#1 s/p URSLL with CVAC and stent placement Stent intolerance vs. Narcotic dependence issue Assessment/Plan KUB Hydration Toradol 60 mg IV Outpatient stent removal in 2 weeks Plan discussed with: Patient, Other JEANCARLOS CHAUHAN MD Nov 14, 2024 09:31
[2024-11-14] MEDS: SODIUM CHLORIDE 0.9% 500 ML IV ONE (10:49)
[2024-11-14] MEDS: KETOROLAC TROMETH 60MG/2ML VIAL IV ONE (12:24)
[2024-11-14 12:40] VITALS: BP 114/64; PULSE 77; RESP 18; TEMP 98.9; O2SAT 100
[2024-11-14] MEDS ORDERED: TAMS-35 PO (13:38)
[2024-11-14] MEDS ORDERED: SERT50TA PO (13:38)
[2024-11-14] MEDS ORDERED: GABA-1251 PO (13:38)
--- NOTE | 2024-11-14 13:39 | DVHDS2 ---
Discharge Summary Date of Admission Nov 10, 2024 at 21:07 Date of Discharge: Nov 14, 2024 Labs/Diagnostic Data: Laboratory Results Test 11/11/24 09:11 11/10/24 16:22 11/10/24 15:41 11/10/24 15:40 White Blood Count 7.8 10^3/uL (4.4-10.8) Red Blood Count 3.61 10^6/uL (4.0-5.20) Hemoglobin 11.9 g/dL (12.2-16.2) Hematocrit 34.4 % (36.0-46.0) Mean Corpuscular Volume 95.3 fL (80.0-100.0) Mean Corpuscular Hemoglobin 32.9 pg (28.0-32.0) Mean Corpuscular Hemoglobin Concent 34.5 g/dL (32.0-36.0) Red Cell Distribution Width 13.5 % (11.8-14.3) Platelet Count 337 10^3/uL (140-450) Mean Platelet Volume 8.3 fL (6.9-10.8) Neutrophils (%) (Auto) 63.6 % (37.0-80.0) Lymphocytes (%) (Auto) 31.2 % (10.0-50.0) Monocytes (%) (Auto) 3.7 % (0.0-12.0) Eosinophils (%) (Auto) 1.2 % (0.0-7.0) Basophils (%) (Auto) 0.3 % (0.0-2.0) Neutrophils # (Auto) 5.0 10 ^3/uL (1.6-8.6) Lymphocytes # (Auto) 2.4 10 ^3/uL (0.4-5.4) Monocytes # (Auto) 0.3 10 ^3/uL (0-1.3) Eosinophils # (Auto) 0.1 10 ^3/uL (0-0.8) Basophils # (Auto) 0 10 ^3/uL (0-0.2) Nucleated Red Blood Cells 0.1 % Sodium Level 142 mmol/L (136-145) Potassium Level 4.1 mmol/L (3.5-5.1) Chloride Level 113 mmol/L (98-107) Carbon Dioxide Level 22 mmol/L (20-31) Anion Gap 7 (5-15) Blood Urea Nitrogen 8 mg/dL (9-23) Creatinine 0.62 mg/dL (0.550-1.02) Glomerular Filtration Rate Calc 120 mL/min (>90) BUN/Creatinine Ratio 12.9 (10.0-20.0) Serum Glucose 80 mg/dL (74-106) Calcium Level 8.2 mg/dL (8.7-10.4) POC Glucose 74 mg/dl (70-106) Urine Color Light-orange (Yellow) Urine Clarity Ex.turbid (Clear) Urine pH 6.0 (5.0-9.0) Urine Specific [place] 1.027 (1.001-1.035) Urine Protein 2+ (Negative) Urine Ketones Negative (Negative) Urine Blood 1+ /uL (Negative) Urine Nitrite 2+ (Negative) Urine Bilirubin Negative (Negative) Urine Urobilinogen Normal mg/dL (Negative) Urine Leukocyte Esterase 3+ /uL (Negative) Urine RBC 117 /hpf (0 - 4) Urine WBC Clumps Present /hpf (None Seen) Urine Microscopic WBC 1416 /HPF (0-5) Urine Squamous Epithelial Cells Mod /hpf (<5) Urine Bacteria Few /hpf (None Seen) Urine Mucus Few (None Seen) Urine Glucose Normal mg/dL (Normal) Urine Test Negative (Negative) Urine Opiates Screen Pos (NEGATIVE) Urine Fentanyl Screen Neg (NEGATIVE) Urine Barbiturates Screen Neg (NEGATIVE) Urine Phencyclidine Screen Neg (NEGATIVE) Urine Amphetamines Screen Neg (NEGATIVE) Urine Benzodiazepines Screen Pos (NEGATIVE) Urine Cocaine Screen Neg (NEGATIVE) Urine Cannabinoids Screen Neg (NEGATIVE) Lactic Acid Level 1.3 mmol/L (0.4-2.0) Total Bilirubin 0.4 mg/dL (0.2-1.0) Aspartate Amino Transferase (AST) 13 U/L (13-40) Alanine Aminotransferase (ALT) 12 U/L (7-40) Alkaline Phosphatase 66 U/L (46-116) Total Protein 6.7 g/dL (5.7-8.2) Albumin 3.8 g/dL (3.2-4.8) Other Laboratory Tests 11/11/24 09:11 Brief Hx & Hospital Course: Patient is 34-year-old female with past medical history of nephrolithiasis, endometriosis, anxiety, depression who came to the hospital with a chief complaint of acute onset of left-sided flank pain since last two days. Flank pain is 9/10, throbbing in nature, worsened over the time, associated with nausea and two episodes of vomiting. As per patient he went to one of the hospital in [place] where she was told that she has 1.2 cm left-sided renal stone, however she did not seek any other treatment and came to the [facility]. Mainly located in left flank pain, not associated with increased urinary frequency however patient had burning micturition at the end. Color of the urine is pale yellow, which did not change from regular. Last menstrual period early October. Patient denying any other symptoms at this point. Past medical history: Nephrolithiasis, endometriosis, anxiety, depression. Past surgical history: Lithotripsy for nephrolithiasis in 2019. Personal history: Smokes half a pack cigarettes for last 10 years. Denying any other recreational drug use. Allergy: None Home medication: Zoloft 100 mg p.o. daily, gabapentin 800 mg p.o. t.i.d., Xanax 1 mg b.i.d. for anxiety, propranolol as needed for anxiety. Acute complicated UTI Acute pyelonephritis Left-sided nephrolithiasis with mild left hydronephrosis Left renal pelvis calculi measuring 1.3 cm. Incidental adrenal nodule 1.1 cm.17 Hounsfield units Anxiety Depression, no suicidal ideation 11/11/2024: pending evaluation by urology pre-ricci urine cx indicates gram neg infection, started on ceftriaxone 11/12/2024: continue with iv abx. pending culture sensitivity awaiting evaluation by urology 11/13/2024: pt underwent stent placement (ureteral), please refer to urology procedure record discharged to home. pt asked for norco and dilaudid to go home. I stated that she can have Meloxicam and neurontin Condition at Discharge: Fair Final Diagnosis/Problems List see above Discharge Disposition: Home Discharge Instruct/Medications Diet: Cardiac 2g Na,low cholest Activity: Light activity Scheduled Acetaminophen (Tylenol 8 Hour Arthritis), 650 MG PO TID Gabapentin (Gabapentin), 1 TAB PO TID, (Reported) Gabapentin (Gabapentin), 800 MG PO TID Meloxicam (Meloxicam), 7.5 MG PO BID Sertraline Hcl (Sertraline Hcl), 1 TAB PO DAILY, (Reported) Sertraline Hcl (Zoloft), 100 MG PO DAILY Tamsulosin Hcl (Flomax), 0.4 MG PO QPM Discharge Statement: "Patient was advised to return to the ER or call 911 if any headaches, dizziness, shortness of breath, chest pain, abdominal pain, bleeding, fevers, or worsening of medical condition. Patient was counseled about treatment plan, medications, possible side effects, patientverbalized understanding. All questions were answered to the best of my ability. This discharge took greater then 30 minutes in planning, reviewing documentation, counseling the patient, and discussing with other team members." ASSESSMENT ASSESSMENT Assessment Date of Service: Nov 14, 2024 Billing Provider: ROBERT KAYE DO Common Visit Codes: 31340-UHE/OBS DISCH DAY >30min ROBERT KAYE DO Nov 14, 2024 13:39
[2024-11-14] MEDS ORDERED: MELO7.5T7 PO (15:14)
[2024-11-14 17:00] VITALS: BP 117/72; PULSE 89; RESP 18; TEMP 97.5; O2SAT 100
== END 2024-11-14 17:20 | disposition home or self-care (01) | DRG 661 ==
LOC: ER 14:57 → EAST 18:05 → OVERFLOW 18:05 → ER 18:05 → OVERFLOW 21:07 → EAST 22:13
PROVIDERS: ADMIT Internal Medicine; ATTEND Internal Medicine
PROC: 0TC18ZZ Extirpation of Matter from Left Kidney, Via Natural or Artificial Opening Endoscopic (ICD-10-PCS; 2024-11-13)
PROC: 0T778DZ Dilation of Left Ureter with Intraluminal Device, Via Natural or Artificial Opening Endoscopic (ICD-10-PCS; principal; 2024-11-13 12:13)
DX: N13.6 Pyonephrosis (principal); F41.9 Anxiety disorder, unspecified; F32.A Depression, unspecified; F17.210 Nicotine dependence, cigarettes, uncomplicated; E27.8 Other specified disorders of adrenal gland; Z79.899 Other long term (current) drug therapy; Z87.442 Personal history of urinary calculi
CPT/HCPCS: 36415; 74018; 74176; 76000; 80048; 80053; 80307; 81001; 81025; 82962; 83605; 85025; 87086; G0378; J0131; J0330; J1885; J2405